=== PATIENT | male | born 1945 | race Caucasian/White ===

== ENCOUNTER 2018-06-28 14:11 | Inpatient (IN) | payer OTHER, MEDICARE ==
[2018-06-28] MEDS ORDERED: Ondansetron 4 MG/2 ML SDV IVPUSH ONE (14:55)
[2018-06-28] MEDS ORDERED: Sodium Chloride 0.9% 10 ML Syringe FLUSH PRN (14:55)
[2018-06-28] MEDS ORDERED: Sodium Chloride 0.9% 1,000 ML IV SCH (15:00)
--- NOTE | 2018-06-28 16:00 | EDM.PDOC ---
ED HPI GENERAL MEDICAL PROBLEM - General Chief Complaint: Abdominal Pain Stated Complaint: UNABLE TO HAVE BOWEL MOVEMENT SENT BY DR AGUSTIN Time Seen by Provider: 06/28/18 14:32 Source of Information: Reports: Patient, RN Notes Reviewed - History of Present Illness INITIAL COMMENTS - FREE TEXT/NARRATIVE: 73-year-old male has been transferred here to the ED from our [facility] medical clinic after evaluation for abdominal pain, nausea, no appetite for the last 3 days and abdominal pain that has worsened last evening and today primarily upper mid abdomen and right upper abdomen. Have history of gallbladder surgery quite a few years ago. He is been nauseated but not vomiting. Last BM about 3 days ago and he states he normally is quite regular going about once every day. No fever or chills. No chest pain or difficulty breathing. The pain does not radiate to his back. He does have history of prior cholecystectomy many years ago. He states he does not drink alcohol. - Related Data Allergies Allergy/AdvReac Type Severity Reaction Status Date / Time vitamin E (d-alpha AdvReac Rash Verified 06/22/15 15:12 tocopherol) [vitamin E] Home Meds: Home Meds Albuterol [Proventil HFA] 2 puff INH Q6H PRN 06/22/15 [History] Clopidogrel [Plavix] 75 mg PO PCDINNER 06/22/15 [History] Hydrochlorothiazide 12.5 mg PO DAILY 06/22/15 [History] atorvaSTATin Calcium [Atorvastatin Calcium] 20 mg PO BEDTIME 06/22/15 [History] metFORMIN HCl [Metformin HCl] 500 mg PO BID 06/22/15 [History] Formoterol Fumarate [Perforomist] 2 ml NEB BID 06/28/18 [History] Lisinopril 2.5 mg PO DAILY 06/28/18 [History] Past Medical History Other HEENT History: BILATERAL SENSORNEURAL HEARING LOSS, DENTURES - PT STATES HE DOESN'T WEAR THEM Cardiovascular History: Reports: High Cholesterol, Hypertension Other Cardiovascular History: HX OF VARICOSE VEINS Respiratory History: Reports: COPD, Sleep Apnea Other Gastrointestinal History: HX OF GALL STONES Musculoskeletal History: Reports: Gout Other Musculoskeletal History: RIGHT SHOULDER PAIN, DECREASED ROM, ROTATOR CUFF TEAR Neurological History: Reports: CVA, TIA Endocrine/Metabolic History: Reports: Diabetes, Type I Dermatologic History: Reports: Eczema Other Dermatologic History: SEBORRHEIC KERATOSIS, ECZEMA - Past Surgical History Cardiovascular Surgical History: Reports: Carotid Endarterectomy Musculoskeletal Surgical History: Reports: Other (See Below) Social & Family History - Family History HEENT: Reports: Cataract, Glaucoma Cardiac: Reports: Heart Failure, High Cholesterol, Hypertension, [place] OBGYN: Reports: Musculoskeletal: Reports: Arthritis Neurological: Reports: CVA, TIA Endocrine/Metabolic: Reports: Diabetes, Type I Hematologic: Reports: Anemia ED ROS GENERAL - Review of Systems Review Of Systems: See Below Constitutional: Denies: Fever, Chills, Diaphoresis HEENT: Denies: Rhinitis, Sinus Problem, Throat Pain Respiratory: Denies: Shortness of Breath Cardiovascular: Denies: Chest Pain GI/Abdominal: Reports: Abdominal Pain (Upper abdomen and right upper abdomen), Decreased Appetite, Nausea. Denies: Diarrhea Musculoskeletal: Denies: Back Pain Skin: Reports: No Symptoms Neurological: Denies: Dizziness, Numbness, Tingling, Trouble Speaking, Difficulty Walking ED EXAM, GI/ABD - Physical Exam Exam: See Below General Appearance: Alert, Mild Distress Eyes: Bilateral: Normal Appearance Throat/Mouth: Normal Inspection Neck: Supple, Full Range of Motion Respiratory/Chest: No Respiratory Distress, Lungs Clear, Normal Breath Sounds Cardiovascular: Regular Rate, Rhythm GI/Abdominal Exam: Soft, Tender (Moderate tenderness upper mid abdomen and right upper abdomen). No: Guarding, Rebound Back Exam: No: CVA Tenderness (L), CVA Tenderness (R) Extremities: Normal Inspection. No: Normal Range of Motion, Leg Pain Neurological: Alert, Oriented, No Motor/Sensory Deficits Skin Exam: Warm, Dry, Normal Color Course - Vital Signs Last Recorded V/S: Last Vital Signs Temp 98.8 F 06/28/18 19:02 Pulse 86 06/28/18 19:02 Resp 18 06/28/18 19:02 BP 147/84 H 06/28/18 19:02 Pulse Ox 91 L 06/28/18 19:02 - Orders/Labs/Meds Orders: Active Orders 24 hr Category Date Time Status Sodium Chloride 0.9% [Normal Saline] 1,000 ml Med 06/28/18 15:00 Active IV ONETIME Sodium Chloride 0.9% [Normal Saline] 100 ml Med 06/28/18 16:15 Active IV ASDIRECTED Sodium Chloride 0.9% [Saline Flush] Med 06/28/18 14:55 Active 10 ml FLUSH ASDIRECTED PRN Peripheral IV Insertion Adult [OM.PC] Stat Oth 06/28/18 14:54 Ordered Medication Orders Albuterol (Proventil Hfa) 0 gm INH Q6H PRN PRN Reason: breathing Clopidogrel Bisulfate (Plavix) 75 mg PO PCDINNER JOSELINE Enoxaparin Sodium (Lovenox) 30 mg SUBCUT Q24H JOSELINE Hydralazine HCl (Apresoline) 20 mg IVPUSH Q6H PRN PRN Reason: Hypertension Sodium Chloride (Normal Saline) 1,000 mls @ 999 mls/hr IV ONETIME JOSELINE Last Admin: 06/28/18 15:07 Dose: 999 mls/hr Sodium Chloride (Normal Saline) 100 mls @ 80 mls/hr IV ASDIRECTED JOSELINE Last Admin: 06/28/18 16:30 Dose: 80 mls/hr Sodium Chloride (Sodium Chloride 0.45%) 1,000 mls @ 100 mls/hr IV ASDIRECTED JOSELINE Dextrose/Sodium Chloride (Dextrose 5%-1/2 Ns) 1,000 mls @ 100 mls/hr IV ASDIRECTED JOSELINE Non-Formulary Medication (Formoterol Fumarate [Perforomist]) 2 ml NEB BID JOSELINE Ondansetron HCl (Zofran) 4 mg IVPUSH Q8H PRN PRN Reason: Nausea/Vomiting Simvastatin (Zocor) 20 mg PO BEDTIME JOSELINE Sodium Chloride (Saline Flush) 10 ml FLUSH ASDIRECTED PRN PRN Reason: Keep Vein Open Last Admin: 06/28/18 15:07 Dose: 10 ml Meds: Medications Generic Name Dose Route Start Last Admin Trade Name Freq PRN Reason Stop Dose Admin Albuterol 0 gm 06/28/18 19:45 Proventil Hfa INH Q6H PRN breathing Clopidogrel Bisulfate 75 mg 06/29/18 19:00 Plavix PO PCDINNER JOSELINE Enoxaparin Sodium 30 mg 06/28/18 20:15 Lovenox SUBCUT Q24H JOSELINE Hydralazine HCl 20 mg 06/28/18 20:00 Apresoline IVPUSH Q6H PRN Hypertension Sodium Chloride 1,000 mls @ 999 mls/hr 06/28/18 15:00 06/28/18 15:07 Normal Saline IV 999 mls/hr ONETIME JOSELINE Administration Sodium Chloride 100 mls @ 80 mls/hr 06/28/18 16:15 06/28/18 16:30 Normal Saline IV 80 mls/hr ASDIRECTED JOSELINE Administration Sodium Chloride 1,000 mls @ 100 mls/hr 06/28/18 20:15 Sodium Chloride 0.45% IV ASDIRECTED JOSELINE Dextrose/Sodium Chloride 1,000 mls @ 100 mls/hr 06/29/18 07:00 Dextrose 5%-1/2 Ns IV ASDIRECTED JOSELINE Non-Formulary Medication 2 ml 06/28/18 21:00 Formoterol Fumarate [Perforomist] NEB BID JOSELINE Ondansetron HCl 4 mg 06/28/18 20:01 Zofran IVPUSH Q8H PRN Nausea/Vomiting Simvastatin 20 mg 06/28/18 21:00 Zocor PO BEDTIME JOSELINE Sodium Chloride 10 ml 06/28/18 14:55 06/28/18 15:07 Saline Flush FLUSH 10 ml ASDIRECTED PRN Administration Keep Vein Open Discontinued Medications Generic Name Dose Route Start Last Admin Trade Name Freq PRN Reason Stop Dose Admin Diatrizoate Meglum/Diatrizoate Sod 90 ml 06/28/18 16:12 06/28/18 16:30 Gastrografin 37% PO 06/28/18 16:13 90 ml ONETIME ONE Administration Dextrose/Sodium Chloride 1,000 mls @ 100 mls/hr 06/28/18 20:15 Dextrose 5%-1/2 Ns IV ASDIRECTED JOSELINE Iopamidol 100 ml 06/28/18 16:11 06/28/18 16:30 [id number] (76%) IV 06/28/18 16:12 100 ml ONETIME ONE Administration Ondansetron HCl 4 mg 06/28/18 14:55 06/28/18 15:07 Zofran IVPUSH 06/28/18 14:56 4 mg ONETIME ONE Administration - Re-Assessments/Exams Free Text/Narrative Re-Assessment/Exam: 06/28/18 16:00 I did review labs from the clinic, white blood count 7800 sodium 131 potassium 4.2 CO2 27 anion gap 14.2 C reactive protein 8.2 amylase 2938. Patient was sent to the ED with plan for direct admission. However Dr. Champion has asked that we do get a CT of his abdomen for more information regarding pancreatitis and also to make sure he doesn't have bowel obstruction. Have ordered IV fluid, IV Zofran , CT abdomen and pelvis with oral and IV contrast. 06/28/18 17:26. CT does show findings compatible with mild pancreatitis, no evidence for acute bowel obstruction, no other acute findings. See Radiology report for details. Departure - Departure Time of Disposition: 17:27 Disposition: Admitted As Inpatient 68 Condition: Fair Clinical Impression: Pancreatitis Qualifiers: Chronicity: acute Pancreatitis type: unspecified pancreatitis type Acute pancreatitis complication: unspecified Qualified Code(s): K85.90 - Acute pancreatitis without necrosis or infection, unspecified - Discharge Information ED Communication - Discussed Case With (1) Discussed Case With (1): Admitting Provider (Dr Champion, decision to admit at about 17:25.) - My Orders Last 24 Hours: My Active Orders 06/28/18 14:54 Peripheral IV Insertion Adult [OM.PC] Stat 06/28/18 14:55 Sodium Chloride 0.9% [Saline Flush] 10 ml FLUSH ASDIRECTED PRN 06/28/18 15:00 Sodium Chloride 0.9% [Normal Saline] 1,000 ml IV ONETIME 06/28/18 16:15 Sodium Chloride 0.9% [Normal Saline] 100 ml IV ASDIRECTED - Assessment/Plan Last 24 Hours: My Active Orders 06/28/18 14:54 Peripheral IV Insertion Adult [OM.PC] Stat 06/28/18 14:55 Sodium Chloride 0.9% [Saline Flush] 10 ml FLUSH ASDIRECTED PRN 06/28/18 15:00 Sodium Chloride 0.9% [Normal Saline] 1,000 ml IV ONETIME 06/28/18 16:15 Sodium Chloride 0.9% [Normal Saline] 100 ml IV ASDIRECTED
[2018-06-28] MEDS ORDERED: Iopamidol 755 Mg/ML 200 ML Bottle IV ONE (16:11)
[2018-06-28] MEDS ORDERED: Diatrizoate Meglumine/Diatrizoate Sodium 37% 120 ML Bottle PO ONE (16:12)
[2018-06-28] MEDS ORDERED: Sodium Chloride 0.9% 100 ML IV SCH (16:15)
--- NOTE | 2018-06-28 17:04 | CT ---
CT abdomen and pelvis Technique: Multiple axial sections were obtained from above the dome of the diaphragm inferiorly through the pubic symphysis. Intravenous and oral contrast was utilized. Delayed images were also obtained through the abdomen and pelvis. Comparison: Prior abdominal ultrasound and abdominal x-ray performed earlier on the same day. Findings: Visualized lung bases show nothing acute. Liver shows slight fatty infiltration. Spleen appears within normal limits. Adrenal glands show no nodule. Multiple cysts are noted within the right kidney. Largest cyst is exophytic off the lower pole measuring 2.8 cm. Left kidney is unremarkable. Pancreas shows slight haziness around its head with small low density finding measuring 1.5 cm between the pancreatic head and duodenum. Multiple surgical clips are seen from prior cholecystectomy. Aorta shows atherosclerotic change without aneurysm. Atherosclerotic change continues into the iliac vessels. No retroperitoneal adenopathy or mesenteric abnormalities are seen. Appendix is seen and is normal in size. No pelvic mass or adenopathy is seen. Delayed images shows contrast throughout the ureters into the bladder. No free fluid or inflammatory change is seen. Bone window settings were reviewed which shows degenerative change scattered within the spine without acute abnormality. Impression: 1. Pancreatic findings as noted above suspicious for mild pancreatitis. Follow-up CT study recommended in 4 months to make sure the small low density finding does not increase in size. 2. Other incidental findings as noted above. Diagnostic code #3
[2018-06-28] MEDS ORDERED: Albuterol 6.7 GM Inhaler INH PRN (19:45)
--- NOTE | 2018-06-28 19:45 | PCM.HP ---
H&P History of Present Illness - General Date of Service: 06/28/18 Admit Problem/Dx: Admission Diagnosis/Problem Admission Diagnosis/Problem Pancreatitis Source of Information: Patient, Family, Provider History Limitations: Reports: No Limitations - History of Present Illness Initial Comments - Free Text/Narative: 73 year old male with PMH of DM type 2 presented to [facility] clinic and was seen for a complaint of abdominal pain. It is associated with nausea without vomiting. There has been a decreased appetite, there is no food intolerance. The patient stated that he has been constipated and has not had a bowel movement in 4-5 days ; normal pattern is daily. Prior to the constipation, there was no blood, change in color of firmness, and no mucous. He has had no change in habits. And denies fever/chills. Symptom Onset Date: 06/24/18 Duration of Symptoms: Reports: Day(s):, Getting Worse Location: Reports: Abdomen Severity: Moderate Improves with: Reports: Medication Worsens with: Reports: None Associated Symptoms: Reports: Loss of Appetite, Nausea/Vomiting, Weakness Abdomen Pain Score (Numeric/FACES): 6 - Related Data Allergies/Adverse Reactions: Allergies Allergy/AdvReac Type Severity Reaction Status Date / Time vitamin E (d-alpha Allergy Rash Verified 06/29/18 07:11 tocopherol) [vitamin E] Home Medications: Home Meds Albuterol [Proventil HFA] 2 puff INH Q6H PRN 06/22/15 [History] Clopidogrel [Plavix] 75 mg PO PCDINNER 06/22/15 [History] Hydrochlorothiazide 12.5 mg PO DAILY 06/22/15 [History] atorvaSTATin Calcium [Atorvastatin Calcium] 20 mg PO BEDTIME 06/22/15 [History] metFORMIN HCl [Metformin HCl] 500 mg PO BID 06/22/15 [History] Formoterol Fumarate [Perforomist] 2 ml NEB BID 06/28/18 [History] Lisinopril 2.5 mg PO DAILY 06/28/18 [History] Past Medical History Other HEENT History: BILATERAL SENSORNEURAL HEARING LOSS, DENTURES - PT STATES HE DOESN'T WEAR THEM Cardiovascular History: Reports: High Cholesterol, Hypertension Other Cardiovascular History: HX OF VARICOSE VEINS Respiratory History: Reports: COPD, Sleep Apnea Gastrointestinal History: Reports: Pancreatitis Other Gastrointestinal History: HX OF GALL STONES Musculoskeletal History: Reports: Gout Other Musculoskeletal History: RIGHT SHOULDER PAIN, DECREASED ROM, ROTATOR CUFF TEAR Neurological History: Reports: CVA, TIA Endocrine/Metabolic History: Reports: Diabetes, Type I Dermatologic History: Reports: Eczema Other Dermatologic History: SEBORRHEIC KERATOSIS, ECZEMA - Past Surgical History Cardiovascular Surgical History: Reports: Carotid Endarterectomy GI Surgical History: Reports: Cholecystectomy Musculoskeletal Surgical History: Reports: Other (See Below) Social & Family History - Family History HEENT: Reports: Cataract, Glaucoma Cardiac: Reports: Heart Failure, High Cholesterol, Hypertension, [place] OBGYN: Reports: Musculoskeletal: Reports: Arthritis Neurological: Reports: CVA, TIA Endocrine/Metabolic: Reports: Diabetes, Type I Hematologic: Reports: Anemia - Tobacco Use Smoking Status *Q: Former Smoker Years of Tobacco use: 30 Packs/Tins Daily: 1 Used Tobacco, but Quit: Yes Month/Year Tobacco Last Used: 08/07 Second Hand Smoke Exposure: No - Caffeine Use Caffeine Use: Reports: Soda - Recreational Drug Use Recreational Drug Use: No H&P Review of Systems - Review of Systems: Review Of Systems: See Below General: Reports: Weakness HEENT: Reports: No Symptoms Pulmonary: Reports: No Symptoms Cardiovascular: Reports: No Symptoms Gastrointestinal: Reports: Abdominal Pain, Constipation, Decreased Appetite, Nausea Genitourinary: Reports: No Symptoms Musculoskeletal: Reports: No Symptoms Skin: Reports: No Symptoms Psychiatric: Reports: No Symptoms Neurological: Reports: No Symptoms Hematologic/Lymphatic: Reports: No Symptoms Immunologic: Reports: No Symptoms Exam - Exam Exam: See Below - Vital Signs Vital Signs: Last Vital Signs Temp 37.1 C 06/28/18 19:02 Pulse 86 06/28/18 19:02 Resp 18 06/28/18 19:02 BP 147/84 H 06/28/18 19:02 Pulse Ox 91 L 06/28/18 19:02 Weight: 84.368 kg - Exam Quality Assessment: DVT Prophylaxis General: Alert, Oriented, Cooperative HEENT: Conjunctiva Clear, Pupils Equal, Pupils Reactive, PERRLA Neck: Trachea Midline Lungs: Normal Respiratory Effort Cardiovascular: Regular Rate GI/Abdominal Exam: Normal Bowel Sounds, Soft, Non-Tender, No Organomegaly, No Distention (Male) Exam: Deferred Rectal (Males) Exam: Deferred Back Exam: Normal Inspection Extremities: Normal Inspection, Non-Tender, Normal Capillary Refill Skin: Warm Neurological: Cranial Nerves Intact Neuro Extensive - Mental Status: Alert, Oriented x3, Normal Mood/Affect, Normal Cognition, Memory Intact Neuro Extensive - Motor, Sensory, Reflexes: CN II-XII Intact Psychiatric: Alert, Normal Affect, Normal Mood - Patient Data Result Diagrams: 06/29/18 05:45 06/29/18 05:45 - Problem List (1) Hypertension SNOMED Code(s): 07507692 ICD Code: I10 - ESSENTIAL (PRIMARY) HYPERTENSION Status: Acute Current Visit: Yes (2) Diabetes mellitus type 2 in obese SNOMED Code(s): 83079443 ICD Code: E11.69 - TYPE 2 DIABETES MELLITUS WITH OTHER SPECIFIED COMPLICATION ; E66.9 - OBESITY, UNSPECIFIED Status: Acute Current Visit: Yes (3) Peripheral vascular disease SNOMED Code(s): 691440169 ICD Code: I73.9 - PERIPHERAL VASCULAR DISEASE, UNSPECIFIED Status: Acute Current Visit: Yes (4) Hyperlipidemia associated with type 2 diabetes mellitus SNOMED Code(s): 672066518851, 829573339714 ICD Code: E11.69 - TYPE 2 DIABETES MELLITUS WITH OTHER SPECIFIED COMPLICATION ; E78.5 - HYPERLIPIDEMIA, UNSPECIFIED Status: Acute Current Visit: Yes (5) Pancreatitis SNOMED Code(s): 34470406 ICD Code: K85.90 - ACUTE PANCREATITIS WITHOUT NECROSIS OR INFECTION, UNSP Status: Acute Current Visit: Yes Qualifiers: Chronicity: acute Pancreatitis type: unspecified pancreatitis type Acute pancreatitis complication: unspecified Qualified Code(s): K85.90 - Acute pancreatitis without necrosis or infection, unspecified Problem List Initiated/Reviewed/Updated: Yes Orders Last 24hrs: Active Orders 24 hr Category Date Time Status Admission Status [Patient Status] [ADT] Routine ADT 06/28/18 18:14 Active Sodium Chloride 0.9% [Normal Saline] 1,000 ml Med 06/28/18 15:00 Active IV ONETIME Sodium Chloride 0.9% [Normal Saline] 100 ml Med 06/28/18 16:15 Active IV ASDIRECTED Sodium Chloride 0.9% [Saline Flush] Med 06/28/18 14:55 Active 10 ml FLUSH ASDIRECTED PRN Peripheral IV Insertion Adult [OM.PC] Stat Oth 06/28/18 14:54 Ordered Medication Orders Sodium Chloride (Normal Saline) 1,000 mls @ 999 mls/hr IV ONETIME JOSELINE Last Admin: 06/28/18 15:07 Dose: 999 mls/hr Sodium Chloride (Normal Saline) 100 mls @ 80 mls/hr IV ASDIRECTED JOSELINE Last Admin: 06/28/18 16:30 Dose: 80 mls/hr Sodium Chloride (Saline Flush) 10 ml FLUSH ASDIRECTED PRN PRN Reason: Keep Vein Open Last Admin: 06/28/18 15:07 Dose: 10 ml Assessment/Plan Comment:: Impression: Acute pancreatitis, non alcoholic Pancreatic mass on CT of abd/pelvis, query pancreatic cancer Hypertension Hyperlipidemia Diabetes mellitus, type 2 Hyponatremia Plan: NPO except meds/ice chips IVF Pain meds Daily labs Tumor markers Home meds Lipid panel DVT/GI prophylaxis
[2018-06-28] MEDS ORDERED: hydrALAZINE 20 MG/ML SDV IVPUSH PRN (20:00)
[2018-06-28] MEDS ORDERED: Ondansetron 4 MG/2 ML SDV IVPUSH PRN (20:01)
[2018-06-28] MEDS ORDERED: Sodium Chloride 0.45% 1,000 ML IV SCH (20:15)
[2018-06-28] MEDS ORDERED: Dextrose 5%-0.45% NaCl 1,000 ML IV SCH (20:15)
[2018-06-28] MEDS ORDERED: Enoxaparin 30 MG/0.3 ML Syringe SUBCUT SCH (20:30)
[2018-06-28] MEDS: Simvastatin 20 MG Tab PO SCH (21:04)
[2018-06-29] MEDS ORDERED: Dextrose 5%-0.45% NaCl 1,000 ML IV SCH (07:00)
[2018-06-29] MEDS: Insulin Lispro 100 Units/ML 3 ML Vial SUBCUT SCH ×3 (08:32→18:06)
[2018-06-29] MEDS ORDERED: Dextrose 5%-0.9% NaCl 1,000 ML IV SCH (09:45)
[2018-06-29] MEDS ORDERED: Docusate Sodium 100 MG Cap PO PRN (11:16)
[2018-06-29] MEDS: FORMOTEROL FUMARATE NEB SCH ×2 (11:54→11:55)
[2018-06-29] MEDS ORDERED: Furosemide 20 MG/2 ML VIAL IVPUSH ONE (17:53)
[2018-06-29] MEDS ORDERED: Clopidogrel 75 MG Tab PO SCH (19:00)
--- NOTE | 2018-06-29 19:34 | PCM.PN ---
- General Info Date of Service: 06/29/18 Subjective Update: C/O abdominal pain; adjust pain meds. Continue NPO, IVF changed. - Review of Systems General: Reports: No Symptoms HEENT: Reports: No Symptoms Pulmonary: Reports: No Symptoms Cardiovascular: Reports: No Symptoms Gastrointestinal: Reports: Abdominal Pain, Nausea Genitourinary: Reports: No Symptoms Musculoskeletal: Reports: No Symptoms Skin: Reports: No Symptoms Neurological: Reports: No Symptoms Psychiatric: Reports: No Symptoms - Patient Data Vitals - Most Recent: Last Vital Signs Temp 36.7 C 06/29/18 16:56 Pulse 82 06/29/18 16:56 Resp 14 06/29/18 16:56 BP 123/68 06/29/18 16:56 Pulse Ox 99 06/29/18 16:56 Weight - Most Recent: 84.368 kg I&O - Last 24 Hours: Intake & Output 06/29/18 06/29/18 06/29/18 06:59 14:59 22:59 Intake Total 780 681 Output Total 300 775 Balance 480 -94 Lab Results Last 24 Hours: Laboratory Results - last 24 hr 06/28/18 06/29/18 06/29/18 Range/Units 23:39 05:45 05:45 WBC 5.18 (4.23-9.07) K/mm3 RBC 5.34 (4.63-6.08) M/mm3 Hgb 15.0 (13.7-17.5) gm/L Hct 43.0 (40.1-51.0) % MCV 80.5 (79.0-92.2) fl MCH 28.1 (25.7-32.2) pg MCHC 34.9 (32.2-35.5) g/dl RDW Std Deviation 41.3 (35.1-43.9) fL Plt Count 165 (163-337) K/mm3 MPV 10.3 (9.4-12.3) fl Neut % (Auto) 71.8 H (34.0-67.9) % Lymph % (Auto) 10.6 L (21.8-53.1) % Real % (Auto) 15.1 H (5.3-12.2) % Eos % (Auto) 2.1 (0.8-7.0) Baso % (Auto) 0.0 L (0.1-1.2) % Neut # (Auto) 3.72 (1.78-5.38) K/mm3 Lymph # (Auto) 0.55 L (1.32-3.57) K/mm3 Real # (Auto) 0.78 (0.30-0.82) K/mm3 Eos # (Auto) 0.11 (0.04-0.54) K/mm3 Baso # (Auto) 0.00 L (0.01-0.08) K/mm3 Manual Slide Review Normal smear Sodium 133 L (136-145) mEq/L Potassium 3.8 (3.5-5.1) mEq/L Chloride 98 (98-107) mEq/L Carbon Dioxide 25 (21-32) mEq/L Anion Gap 13.8 (5-15) BUN 16 (7-18) mg/dL Creatinine 1.1 (0.7-1.3) mg/dL Est Cr Clr Drug Dosing 55.58 mL/min Estimated GFR (MDRD) > 60 (>60) mL/min BUN/Creatinine Ratio 14.5 (14-18) Glucose 179 H (83-115) mg/dL POC Glucose 198 H (83-110) mg/dL Lactic Acid (0.4-2.0) mmol/L Calcium 9.0 (8.5-10.1) mg/dL Magnesium 2.2 (1.8-2.4) mg/dl C-Reactive Protein 6.4 H* (<1.0) mg/dL Lipase 2115 H (73-393) U/L 06/29/18 06/29/18 06/29/18 Range/Units 05:45 06:21 10:53 WBC (4.23-9.07) K/mm3 RBC (4.63-6.08) M/mm3 Hgb (13.7-17.5) gm/L Hct (40.1-51.0) % MCV (79.0-92.2) fl MCH (25.7-32.2) pg MCHC (32.2-35.5) g/dl RDW Std Deviation (35.1-43.9) fL Plt Count (163-337) K/mm3 MPV (9.4-12.3) fl Neut % (Auto) (34.0-67.9) % Lymph % (Auto) (21.8-53.1) % Real % (Auto) (5.3-12.2) % Eos % (Auto) (0.8-7.0) Baso % (Auto) (0.1-1.2) % Neut # (Auto) (1.78-5.38) K/mm3 Lymph # (Auto) (1.32-3.57) K/mm3 Real # (Auto) (0.30-0.82) K/mm3 Eos # (Auto) (0.04-0.54) K/mm3 Baso # (Auto) (0.01-0.08) K/mm3 Manual Slide Review Sodium (136-145) mEq/L Potassium (3.5-5.1) mEq/L Chloride (98-107) mEq/L Carbon Dioxide (21-32) mEq/L Anion Gap (5-15) BUN (7-18) mg/dL Creatinine (0.7-1.3) mg/dL Est Cr Clr Drug Dosing mL/min Estimated GFR (MDRD) (>60) mL/min BUN/Creatinine Ratio (14-18) Glucose (83-115) mg/dL POC Glucose 180 H 206 H (83-110) mg/dL Lactic Acid 0.9 (0.4-2.0) mmol/L Calcium (8.5-10.1) mg/dL Magnesium (1.8-2.4) mg/dl C-Reactive Protein (<1.0) mg/dL Lipase (73-393) U/L 06/29/18 Range/Units 16:52 WBC (4.23-9.07) K/mm3 RBC (4.63-6.08) M/mm3 Hgb (13.7-17.5) gm/L Hct (40.1-51.0) % MCV (79.0-92.2) fl MCH (25.7-32.2) pg MCHC (32.2-35.5) g/dl RDW Std Deviation (35.1-43.9) fL Plt Count (163-337) K/mm3 MPV (9.4-12.3) fl Neut % (Auto) (34.0-67.9) % Lymph % (Auto) (21.8-53.1) % Real % (Auto) (5.3-12.2) % Eos % (Auto) (0.8-7.0) Baso % (Auto) (0.1-1.2) % Neut # (Auto) (1.78-5.38) K/mm3 Lymph # (Auto) (1.32-3.57) K/mm3 Real # (Auto) (0.30-0.82) K/mm3 Eos # (Auto) (0.04-0.54) K/mm3 Baso # (Auto) (0.01-0.08) K/mm3 Manual Slide Review Sodium (136-145) mEq/L Potassium (3.5-5.1) mEq/L Chloride (98-107) mEq/L Carbon Dioxide (21-32) mEq/L Anion Gap (5-15) BUN (7-18) mg/dL Creatinine (0.7-1.3) mg/dL Est Cr Clr Drug Dosing mL/min Estimated GFR (MDRD) (>60) mL/min BUN/Creatinine Ratio (14-18) Glucose (83-115) mg/dL POC Glucose 231 H (83-110) mg/dL Lactic Acid (0.4-2.0) mmol/L Calcium (8.5-10.1) mg/dL Magnesium (1.8-2.4) mg/dl C-Reactive Protein (<1.0) mg/dL Lipase (73-393) U/L Med Orders - Current: Current Medications Albuterol (Proventil Hfa) 0 gm INH Q6H PRN PRN Reason: breathing Clopidogrel Bisulfate (Plavix) 75 mg PO PCDINNER [facility] Last Admin: 06/29/18 18:07 Dose: 75 mg Docusate Sodium (Colace) 100 mg PO DAILY PRN PRN Reason: Constipation Last Admin: 06/29/18 11:25 Dose: 100 mg Enoxaparin Sodium (Lovenox) 40 mg SUBCUT Q24H [facility] Hydralazine HCl (Apresoline) 20 mg IVPUSH Q6H PRN PRN Reason: Hypertension Dextrose/Sodium Chloride (Dextrose 5%-Normal Saline) 1,000 mls @ 75 mls/hr IV ASDIRECTED [facility] Insulin Human Lispro (Humalog) 0 unit SUBCUT QIDACANDBED [facility]; Protocol Last Admin: 06/29/18 18:06 Dose: 2 unit Ondansetron HCl (Zofran) 4 mg IVPUSH Q8H PRN PRN Reason: Nausea/Vomiting Formoterol Fumarate [Perforomist]20 Mcg/2 Ml Ptom 0 each NEB BID [facility]SELINE Simvastatin (Zocor) 20 mg PO BEDTIME [facility] Last Admin: 06/28/18 21:04 Dose: 20 mg Sodium Chloride (Saline Flush) 10 ml FLUSH ASDIRECTED PRN PRN Reason: Keep Vein Open Last Admin: 06/28/18 15:07 Dose: 10 ml Discontinued Medications Diatrizoate Meglum/Diatrizoate Sod (Gastrografin 37%) 90 ml PO ONETIME ONE Stop: 06/28/18 16:13 Last Admin: 06/28/18 16:30 Dose: 90 ml Enoxaparin Sodium (Lovenox) 30 mg SUBCUT Q24H [facility] Last Admin: 06/28/18 21:12 Dose: 30 mg Furosemide (Lasix) 20 mg IVPUSH ONETIME ONE Stop: 06/29/18 17:54 Last Admin: 06/29/18 18:09 Dose: 20 mg Sodium Chloride (Normal Saline) 1,000 mls @ 999 mls/hr IV ONETIME [facility] Last Admin: 06/28/18 15:07 Dose: 999 mls/hr Sodium Chloride (Normal Saline) 100 mls @ 80 mls/hr IV ASDIRECTED [facility] Last Admin: 06/28/18 16:30 Dose: 80 mls/hr Dextrose/Sodium Chloride (Dextrose 5%-1/2 Ns) 1,000 mls @ 100 mls/hr IV ASDIRECTED [facility] Sodium Chloride (Sodium Chloride 0.45%) 1,000 mls @ 100 mls/hr IV ASDIRECTED [facility] Stop: 06/29/18 05:00 Last Admin: 06/28/18 21:04 Dose: 100 mls/hr Dextrose/Sodium Chloride (Dextrose 5%-1/2 Ns) 1,000 mls @ 100 mls/hr IV ASDIRECTED [facility] Last Admin: 06/29/18 07:14 Dose: 100 mls/hr Dextrose/Sodium Chloride (Dextrose 5%-Normal Saline) 1,000 mls @ 125 mls/hr IV ASDIRECTED [facility] Last Admin: 06/29/18 11:24 Dose: 125 mls/hr Iopamidol (Isovue-370 (76%)) 100 ml IV ONETIME ONE Stop: 06/28/18 16:12 Last Admin: 06/28/18 16:30 Dose: 100 ml Ondansetron HCl (Zofran) 4 mg IVPUSH ONETIME ONE Stop: 06/28/18 14:56 Last Admin: 06/28/18 15:07 Dose: 4 mg Formoterol Fumarate [Perforomist] 2 Ml * *Ptom 2 each NEB BID [facility]SELINE Last Admin: 06/29/18 11:55 Dose: Not Given - Exam Quality Assessment: DVT Prophylaxis General: Alert, Oriented, Cooperative, No Acute Distress HEENT: Pupils Equal, Pupils Reactive, EOMI Neck: Trachea Midline, No JVD Lungs: Normal Respiratory Effort Cardiovascular: Regular Rate, Regular Rhythm GI/Abdominal Exam: Normal Bowel Sounds, Soft, Non-Tender, No Organomegaly, No Distention (Male) Exam: Deferred Back Exam: Normal Inspection Extremities: Normal Inspection, Non-Tender, Normal Capillary Refill Skin: Warm Neurological: No New Focal Deficit Psy/Mental Status: Alert, Normal Affect, Normal Mood - Problem List & Annotations (1) Hypertension SNOMED Code(s): 06126274 Code(s): I10 - ESSENTIAL (PRIMARY) HYPERTENSION Status: Acute Current Visit: Yes (2) Diabetes mellitus type 2 in obese SNOMED Code(s): 66539048 Code(s): E11.69 - TYPE 2 DIABETES MELLITUS WITH OTHER SPECIFIED COMPLICATION ; E66.9 - OBESITY, UNSPECIFIED Status: Acute Current Visit: Yes (3) Peripheral vascular disease SNOMED Code(s): 058907891 Code(s): I73.9 - PERIPHERAL VASCULAR DISEASE, UNSPECIFIED Status: Acute Current Visit: Yes (4) Hyperlipidemia associated with type 2 diabetes mellitus SNOMED Code(s): 319985513222, 912561264611 Code(s): E11.69 - TYPE 2 DIABETES MELLITUS WITH OTHER SPECIFIED COMPLICATION ; E78.5 - HYPERLIPIDEMIA, UNSPECIFIED Status: Acute Current Visit: Yes (5) Pancreatitis SNOMED Code(s): 98179392 Code(s): K85.90 - ACUTE PANCREATITIS WITHOUT NECROSIS OR INFECTION, UNSP Status: Acute Current Visit: Yes Qualifiers: Chronicity: acute Pancreatitis type: unspecified pancreatitis type Acute pancreatitis complication: unspecified Qualified Code(s): K85.90 - Acute pancreatitis without necrosis or infection, unspecified - Problem List Review Problem List Initiated/Reviewed/Updated: Yes - My Orders Last 24 Hours: My Active Orders 06/28/18 19:45 Albuterol [Proventil HFA] 0 gm INH Q6H PRN 06/28/18 20:00 hydrALAZINE [Apresoline] 20 mg IVPUSH Q6H PRN 06/28/18 20:01 Ondansetron [Zofran] 4 mg IVPUSH Q8H PRN 06/28/18 20:04 Blood Glucose Check, Bedside [RC] Q6HR 06/28/18 20:06 Resuscitation Status Routine 06/28/18 21:00 Simvastatin [Zocor] 20 mg PO BEDTIME 06/29/18 09:00 Consult to Case Management/Professor Of [employer] Studies [CONS] Routine Consult to Occupational Therapy [OT Evaluation and Treatment] [CONS] Routine 06/29/18 11:00 Consult to Physical Therapy [PT Evaluation and Treatment] [CONS] Routine 06/29/18 11:16 Docusate Sodium [Colace] 100 mg PO DAILY PRN 06/29/18 14:41 Patient's Own Medication [Ptom] 0 each NEB BID 06/29/18 17:55 CXR [Chest 2V] [CR] Routine 06/29/18 18:00 Dextrose 5%-0.9% NaCl [Dextrose 5%-Normal Saline] 1,000 ml IV ASDIRECTED 06/29/18 19:00 Clopidogrel [Plavix] 75 mg PO PCDINNER 06/29/18 21:00 Enoxaparin [Lovenox] 40 mg SUBCUT Q24H 06/29/18 Breakfast NPO [Nothing Per Oral Diet] [DIET] 06/30/18 05:00 BMP [BASIC METABOLIC PANEL,BMP] [CHEM] DAILY CBC WITH AUTO DIFF [HEME] DAILY CRP [C-REACTIVE PROTEIN] [CHEM] DAILY LACTIC ACID [CHEM] DAILY LIPASE [CHEM] DAILY MAGNESIUM [CHEM] DAILY 06/30/18 08:00 Abdomen 2V AP Flat Upright [CR] Routine 07/01/18 05:00 BMP [BASIC METABOLIC PANEL,BMP] [CHEM] DAILY CBC WITH AUTO DIFF [HEME] DAILY CRP [C-REACTIVE PROTEIN] [CHEM] DAILY LACTIC ACID [CHEM] DAILY LIPASE [CHEM] DAILY MAGNESIUM [CHEM] DAILY 07/02/18 05:00 BMP [BASIC METABOLIC PANEL,BMP] [CHEM] DAILY CBC WITH AUTO DIFF [HEME] DAILY CRP [C-REACTIVE PROTEIN] [CHEM] DAILY LACTIC ACID [CHEM] DAILY LIPASE [CHEM] DAILY MAGNESIUM [CHEM] DAILY - Plan Plan:: Impression: Acute pancreatitis, non alcoholic Pancreatic mass on CT of abd/pelvis, query pancreatic cancer Hypertension Hyperlipidemia Diabetes mellitus, type 2 Hyponatremia Plan: NPO except meds/ice chips IVF Pain meds Daily labs Tumor markers Home meds Lipid panel DVT/GI prophylaxis
[2018-06-29] MEDS ORDERED: Magnesium Hydroxide 400 MG/5 ML Susp 30 ML Cup PO ONE (20:26)
--- NOTE | 2018-06-29 20:32 | CR ---
Chest: 2 views of the chest were obtained. Comparison: Prior chest x-ray of 12/03/17. Slight pleural thickening is seen along the lateral chest reyes which is stable. Very slight atelectasis is seen within both lung bases. Lungs otherwise are clear but appear slightly hyperinflated. Minimal degenerative change is scattered within the spine. Heart size and mediastinum are normal. Impression: 1. Possible emphysematous change and other incidental findings as noted above. Nothing acute is appreciated. Diagnostic code #2
[2018-06-29] MEDS: Dextrose 5%-0.9% NaCl 1,000 ML IV SCH (20:34)
[2018-06-29] MEDS: Simvastatin 20 MG Tab PO SCH (20:34)
[2018-06-29] MEDS ORDERED: Enoxaparin 40 MG/0.4 ML Syringe SUBCUT SCH (21:00)
[2018-06-29] MEDS: FORMOTEROL FUMARATE 20 MCG/2 ML NEB SCH (21:01)
[2018-06-30] MEDS: Insulin Lispro 100 Units/ML 3 ML Vial SUBCUT SCH ×3 (00:57→11:56)
[2018-06-30] MEDS: FORMOTEROL FUMARATE 20 MCG/2 ML NEB SCH (08:27)
--- NOTE | 2018-06-30 09:22 | CR ---
Abdomen: Supine and upright views of the abdomen were obtained. Comparison: Previous abdominal series of 06/28/18. Contrast noted within the colon from prior CT exam of 06/28/18. Surgical clips are seen within the upper right abdomen. Vascular calcification is seen. Prostate calcifications are present. Degenerative change scattered within the spine. Impression: 1. Incidental findings as noted above. Nothing acute is seen. Diagnostic code #2
[2018-06-30] MEDS: Dextrose 5%-0.9% NaCl 1,000 ML IV SCH (09:28)
--- NOTE | 2018-06-30 15:24 | PCM.DCSUM1 ---
Discharge Summary - Hospital Course Free Text/Narrative:: 73 year old male with abdominal pain associated with nausea, no vomiting. Weight loss is unknown, he additionally complains of a change in bowel habits. The patient had an elevated lipase, >2000 of unclear etiology. Alcohol, and cholesterol were eliminated from the list as a source. A review of medications was not performed, but there had been no recent changes. A CT of the abdomen/ pelvis was performed which documented a 1.5 cm density in the pancreatic head. In light of this new finding as well as abnormal LFT/bilirubin, the working diagnosis became possible pancreatic cancer. The family requested a transfer to [place] for more specialized care. The case was discussed with the hospitalist service apparel fashion designer, one call [facility]. Dr Rojas accepted the patient who will be admitted to the medical floor. CA19-9 has been drawn, and is pending. Diagnosis Acute pancreatitis Abdominal pain with nausea Pancreatic mass Transaminitis Hyperbilirubinemia HPI Initial Comments: 73 year old male with PMH of DM type [address] [facility] clinic and was seen for a complaint of abdominal pain. It is associated with nausea without vomiting. There has been a decreased appetite, there is no food intolerance. The patient stated that he has been constipated and has not had a bowel movement in 4-5 days ; normal pattern is daily. Prior to the constipation, there was no blood, change in color of firmness, and no mucous. He has had no change in habits. And denies fever/chills. Diagnosis: Stroke: No - Discharge Data Discharge Date: 06/30/18 Discharge Disposition: DC/Tfer to Acute Hospital 02 Condition: Good - Discharge Diagnosis/Problem(s) (1) Hypertension SNOMED Code(s): 98304275 ICD Code: I10 - ESSENTIAL (PRIMARY) HYPERTENSION Status: Acute (2) Diabetes mellitus type 2 in obese SNOMED Code(s): 70819923 ICD Code: E11.69 - TYPE 2 DIABETES MELLITUS WITH OTHER SPECIFIED COMPLICATION ; E66.9 - OBESITY, UNSPECIFIED Status: Acute (3) Peripheral vascular disease SNOMED Code(s): 951355808 ICD Code: I73.9 - PERIPHERAL VASCULAR DISEASE, UNSPECIFIED Status: Acute (4) Hyperlipidemia associated with type 2 diabetes mellitus SNOMED Code(s): 178680944026, 203096655154 ICD Code: E11.69 - TYPE 2 DIABETES MELLITUS WITH OTHER SPECIFIED COMPLICATION ; E78.5 - HYPERLIPIDEMIA, UNSPECIFIED Status: Acute (5) Pancreatitis SNOMED Code(s): 02543041 ICD Code: K85.90 - ACUTE PANCREATITIS WITHOUT NECROSIS OR INFECTION, UNSP Status: Acute Qualifiers: Chronicity: acute Pancreatitis type: unspecified pancreatitis type Acute pancreatitis complication: unspecified Qualified Code(s): K85.90 - Acute pancreatitis without necrosis or infection, unspecified (6) Transaminitis SNOMED Code(s): 790554800, 690149588 ICD Code: R74.0 - NONSPEC ELEV OF LEVELS OF TRANSAMNS & LACTIC ACID DEHYDRGNSE Status: Acute (7) Hyperbilirubinemia SNOMED Code(s): 18561288 ICD Code: E80.6 - OTHER DISORDERS OF BILIRUBIN METABOLISM Status: Acute (8) Pancreatic mass SNOMED Code(s): 120114874 ICD Code: K86.9 - DISEASE OF PANCREAS, UNSPECIFIED Status: Acute - Patient Summary/Data Consults: Consultations 06/29/18 09:00 Consult to Case Management/Provider Service Representative [CONS] Routine Consult to Occupational Therapy [OT Evaluation and Treatment] [CONS] Routine 06/29/18 11:00 Consult to Physical Therapy [PT Evaluation and Treatment] [CONS] Routine - Patient Instructions Diet: NPO Activity: As Tolerated Driving: Do Not Drive Showering/Bathing: May Shower Notify Provider of: Fever, Increased Pain, Nausea and/or Vomiting - Discharge Plan *PRESCRIPTION DRUG MONITORING PROGRAM REVIEWED*: Not Applicable *COPY OF PRESCRIPTION DRUG MONITORING REPORT IN PATIENT [place]: Not Applicable Home Medications: Home Meds Albuterol [Proventil HFA] 2 puff INH Q6H PRN 06/22/15 [History] Clopidogrel [Plavix] 75 mg PO PCDINNER 06/22/15 [History] Hydrochlorothiazide 12.5 mg PO DAILY 06/22/15 [History] atorvaSTATin Calcium [Atorvastatin Calcium] 20 mg PO BEDTIME 06/22/15 [History] metFORMIN HCl [Metformin HCl] 500 mg PO BID 06/22/15 [History] Formoterol Fumarate [Perforomist] 2 ml NEB BID 06/28/18 [History] Lisinopril 2.5 mg PO DAILY 06/28/18 [History] Oxygen Therapy Mode: Room Air Forms: ED Department Discharge Referrals: Albin Joe MD [Primary Care Provider] - Adilia Hodges MD [Physician] - (Patient see's Dr. Hodges through the [place]) - Discharge Summary/Plan Comment DC Time >30 min.: Yes (transfer call to [facility]) Discharge Summary/Plan Comment: Impression: Acute pancreatitis, non alcoholic Pancreatic mass on CT of abd/pelvis, query pancreatic cancer Hypertension Hyperlipidemia Diabetes mellitus, type 2 Hyponatremia Plan: NPO except meds/ice chips IVF Pain meds Daily labs Tumor markers Home meds Lipid panel DVT/GI prophylaxis - General Info Date of Service: 06/28/18 Functional Status: Reports: Pain Controlled, Urinating - Review of Systems General: Reports: Weakness HEENT: Reports: No Symptoms Pulmonary: Reports: No Symptoms Cardiovascular: Reports: No Symptoms Gastrointestinal: Reports: No Symptoms Genitourinary: Reports: No Symptoms Musculoskeletal: Reports: No Symptoms Skin: Reports: No Symptoms Neurological: Reports: No Symptoms Psychiatric: Reports: No Symptoms - Patient Data Vitals - Most Recent: Last Vital Signs Temp 36.8 C 06/30/18 08:47 Pulse 81 06/30/18 08:06 Resp 18 06/30/18 08:06 BP 109/67 06/30/18 08:06 Pulse Ox 92 L 06/30/18 08:27 Weight - Most Recent: 83.552 kg I&O - Last 24 hours: Intake & Output 06/30/18 06/30/18 06/30/18 06:59 14:59 22:59 Intake Total 873 Output Total 1575 Balance -702 Lab Results - Last 24 hrs: Laboratory Results - last 24 hr 06/29/18 06/29/18 06/30/18 Range/Units 16:52 22:21 00:50 WBC (4.23-9.07) K/mm3 RBC (4.63-6.08) M/mm3 Hgb (13.7-17.5) gm/L Hct (40.1-51.0) % MCV (79.0-92.2) fl MCH (25.7-32.2) pg MCHC (32.2-35.5) g/dl RDW Std Deviation (35.1-43.9) fL Plt Count (163-337) K/mm3 MPV (9.4-12.3) fl Neut % (Auto) (34.0-67.9) % Lymph % (Auto) (21.8-53.1) % [place] % (Auto) (5.3-12.2) % Eos % (Auto) (0.8-7.0) Baso % (Auto) (0.1-1.2) % Neut # (Auto) (1.78-5.38) K/mm3 Lymph # (Auto) (1.32-3.57) K/mm3 [place] # (Auto) (0.30-0.82) K/mm3 Eos # (Auto) (0.04-0.54) K/mm3 Baso # (Auto) (0.01-0.08) K/mm3 Manual Slide Review Sodium (136-145) mEq/L Potassium (3.5-5.1) mEq/L Chloride (98-107) mEq/L Carbon Dioxide (21-32) mEq/L Anion Gap (5-15) BUN (7-18) mg/dL Creatinine (0.7-1.3) mg/dL Est Cr Clr Drug Dosing mL/min Estimated GFR (MDRD) (>60) mL/min BUN/Creatinine Ratio (14-18) Glucose (83-115) mg/dL POC Glucose 231 H 239 H 257 H (83-110) mg/dL Lactic Acid (0.4-2.0) mmol/L Calcium (8.5-10.1) mg/dL Magnesium (1.8-2.4) mg/dl Total Bilirubin (0.2-1.0) mg/dL Direct Bilirubin (0.0-0.2) mg/dl C-Reactive Protein (<1.0) mg/dL Triglycerides (<150) mg/dL Cholesterol (<200) mg/dL LDL Cholesterol Direct (<100) mg/dL HDL Cholesterol (40-59) mg/dL Lipase (73-393) U/L 06/30/18 06/30/18 06/30/18 Range/Units 06:07 06:08 06:08 WBC 4.03 L (4.23-9.07) K/mm3 RBC 5.43 (4.63-6.08) M/mm3 Hgb 15.0 (13.7-17.5) gm/L Hct 44.1 (40.1-51.0) % MCV 81.2 (79.0-92.2) fl MCH 27.6 (25.7-32.2) pg MCHC 34.0 (32.2-35.5) g/dl RDW Std Deviation 41.6 (35.1-43.9) fL Plt Count 157 L (163-337) K/mm3 MPV 10.0 (9.4-12.3) fl Neut % (Auto) 64.1 (34.0-67.9) % Lymph % (Auto) 14.6 L (21.8-53.1) % [place] % (Auto) 16.9 H (5.3-12.2) % Eos % (Auto) 3.5 (0.8-7.0) Baso % (Auto) 0.2 (0.1-1.2) % Neut # (Auto) 2.58 (1.78-5.38) K/mm3 Lymph # (Auto) 0.59 L (1.32-3.57) K/mm3 [place] # (Auto) 0.68 (0.30-0.82) K/mm3 Eos # (Auto) 0.14 (0.04-0.54) K/mm3 Baso # (Auto) 0.01 (0.01-0.08) K/mm3 Manual Slide Review Normal smear Sodium 136 (136-145) mEq/L Potassium 4.0 (3.5-5.1) mEq/L Chloride 99 (98-107) mEq/L Carbon Dioxide 28 (21-32) mEq/L Anion Gap 13.0 (5-15) BUN 13 (7-18) mg/dL Creatinine 1.3 (0.7-1.3) mg/dL Est Cr Clr Drug Dosing 47.03 mL/min Estimated GFR (MDRD) 54 (>60) mL/min BUN/Creatinine Ratio 10.0 L (14-18) Glucose 229 H (83-115) mg/dL POC Glucose 215 H (83-110) mg/dL Lactic Acid (0.4-2.0) mmol/L Calcium 9.3 (8.5-10.1) mg/dL Magnesium 2.5 H (1.8-2.4) mg/dl Total Bilirubin 6.3 H (0.2-1.0) mg/dL Direct Bilirubin (0.0-0.2) mg/dl C-Reactive Protein 6.9 H* (<1.0) mg/dL Triglycerides 147 (<150) mg/dL Cholesterol 115 (<200) mg/dL LDL Cholesterol Direct 73 (<100) mg/dL HDL Cholesterol 18.0 L (40-59) mg/dL Lipase 2124 H (73-393) U/L 06/30/18 06/30/18 06/30/18 Range/Units 06:08 06:18 11:14 WBC (4.23-9.07) K/mm3 RBC (4.63-6.08) M/mm3 Hgb (13.7-17.5) gm/L Hct (40.1-51.0) % MCV (79.0-92.2) fl MCH (25.7-32.2) pg MCHC (32.2-35.5) g/dl RDW Std Deviation (35.1-43.9) fL Plt Count (163-337) K/mm3 MPV (9.4-12.3) fl Neut % (Auto) (34.0-67.9) % Lymph % (Auto) (21.8-53.1) % [place] % (Auto) (5.3-12.2) % Eos % (Auto) (0.8-7.0) Baso % (Auto) (0.1-1.2) % Neut # (Auto) (1.78-5.38) K/mm3 Lymph # (Auto) (1.32-3.57) K/mm3 [place] # (Auto) (0.30-0.82) K/mm3 Eos # (Auto) (0.04-0.54) K/mm3 Baso # (Auto) (0.01-0.08) K/mm3 Manual Slide Review Sodium (136-145) mEq/L Potassium (3.5-5.1) mEq/L Chloride (98-107) mEq/L Carbon Dioxide (21-32) mEq/L Anion Gap (5-15) BUN (7-18) mg/dL Creatinine (0.7-1.3) mg/dL Est Cr Clr Drug Dosing mL/min Estimated GFR (MDRD) (>60) mL/min BUN/Creatinine Ratio (14-18) Glucose (83-115) mg/dL POC Glucose 252 H (83-110) mg/dL Lactic Acid 1.0 (0.4-2.0) mmol/L Calcium (8.5-10.1) mg/dL Magnesium (1.8-2.4) mg/dl Total Bilirubin (0.2-1.0) mg/dL Direct Bilirubin 5.00 H (0.0-0.2) mg/dl C-Reactive Protein (<1.0) mg/dL Triglycerides (<150) mg/dL Cholesterol (<200) mg/dL LDL Cholesterol Direct (<100) mg/dL HDL Cholesterol (40-59) mg/dL Lipase (73-393) U/L Med Orders - Current: Current Medications Albuterol (Proventil Hfa) 0 gm INH Q6H PRN PRN Reason: breathing Clopidogrel Bisulfate (Plavix) 75 mg PO PCDINNER [facility] Last Admin: 06/29/18 18:07 Dose: 75 mg Docusate Sodium (Colace) 100 mg PO DAILY PRN PRN Reason: Constipation Last Admin: 06/29/18 11:25 Dose: 100 mg Enoxaparin Sodium (Lovenox) 40 mg SUBCUT Q24H [facility] Last Admin: 06/29/18 20:35 Dose: 40 mg Hydralazine HCl (Apresoline) 20 mg IVPUSH Q6H PRN PRN Reason: Hypertension Dextrose/Sodium Chloride (Dextrose 5%-Normal Saline) 1,000 mls @ 75 mls/hr IV ASDIRECTED [facility] Last Admin: 06/30/18 09:28 Dose: 75 mls/hr Insulin Human Lispro (Humalog) 0 unit SUBCUT Q6HR [facility]; Protocol Last Admin: 06/30/18 11:56 Dose: 6 unit Ondansetron HCl (Zofran) 4 mg IVPUSH Q8H PRN PRN Reason: Nausea/Vomiting Formoterol Fumarate [Perforomist]20 Mcg/2 Ml Ptom 0 each NEB BID [facility] Last Admin: 06/30/18 08:27 Dose: 1 each Simvastatin (Zocor) 20 mg PO BEDTIME [facility] Last Admin: 06/29/18 20:34 Dose: 20 mg Sodium Chloride (Saline Flush) 10 ml FLUSH ASDIRECTED PRN PRN Reason: Keep Vein Open Last Admin: 06/28/18 15:07 Dose: 10 ml Discontinued Medications Diatrizoate Meglum/Diatrizoate Sod (Gastrografin 37%) 90 ml PO ONETIME ONE Stop: 06/28/18 16:13 Last Admin: 06/28/18 16:30 Dose: 90 ml Enoxaparin Sodium (Lovenox) 30 mg SUBCUT Q24H [facility] Last Admin: 06/28/18 21:12 Dose: 30 mg Furosemide (Lasix) 20 mg IVPUSH ONETIME ONE Stop: 06/29/18 17:54 Last Admin: 06/29/18 18:09 Dose: 20 mg Sodium Chloride (Normal Saline) 1,000 mls @ 999 mls/hr IV ONETIME [facility] Last Admin: 06/28/18 15:07 Dose: 999 mls/hr Sodium Chloride (Normal Saline) 100 mls @ 80 mls/hr IV ASDIRECTED [facility] Last Admin: 06/28/18 16:30 Dose: 80 mls/hr Dextrose/Sodium Chloride (Dextrose 5%-1/2 Ns) 1,000 mls @ 100 mls/hr IV ASDIRECTED [facility] Sodium Chloride (Sodium Chloride 0.45%) 1,000 mls @ 100 mls/hr IV ASDIRECTED [facility] Stop: 06/29/18 05:00 Last Admin: 06/28/18 21:04 Dose: 100 mls/hr Dextrose/Sodium Chloride (Dextrose 5%-1/2 Ns) 1,000 mls @ 100 mls/hr IV ASDIRECTED [facility] Last Admin: 06/29/18 07:14 Dose: 100 mls/hr Dextrose/Sodium Chloride (Dextrose 5%-Normal Saline) 1,000 mls @ 125 mls/hr IV ASDIRECTED [facility] Last Admin: 06/29/18 11:24 Dose: 125 mls/hr Insulin Human Lispro (Humalog) 0 unit SUBCUT QIDACANDBED [facility]; Protocol Last Admin: 06/30/18 00:57 Dose: 3 unit Iopamidol (Isovue-370 (76%)) 100 ml IV ONETIME ONE Stop: 06/28/18 16:12 Last Admin: 06/28/18 16:30 Dose: 100 ml Magnesium Hydroxide (Milk Of Magnesia) 30 ml PO ONETIME ONE Stop: 06/29/18 20:27 Last Admin: 06/29/18 20:37 Dose: 30 ml Ondansetron HCl (Zofran) 4 mg IVPUSH ONETIME ONE Stop: 06/28/18 14:56 Last Admin: 06/28/18 15:07 Dose: 4 mg Formoterol Fumarate [Perforomist] 2 Ml * *Ptom 2 each NEB BID [facility] Last Admin: 06/29/18 11:55 Dose: Not Given - Exam Quality Assessment: Reports: DVT Prophylaxis General: Reports: Alert, Oriented, Cooperative, No Acute Distress HEENT: Reports: Pupils Equal, Pupils Reactive, EOMI Neck: Reports: Trachea Midline, No JVD Lungs: Reports: Normal Respiratory Effort Cardiovascular: Reports: Regular Rate GI/Abdominal Exam: Normal Bowel Sounds, Soft, Non-Tender, No Organomegaly, No Distention (Male) Exam: Deferred Rectal (Males) Exam: Deferred Back Exam: Reports: Normal Inspection Extremities: Normal Capillary Refill Skin: Reports: Warm Neurological: Reports: No New Focal Deficit Psy/Mental Status: Reports: Alert, Normal Affect, Normal Mood
[2018-06-30 16:18] VITALS: BP 105/68
== END 2018-06-30 17:23 | DRG 439 ==
LOC: JD.ED 14:11 → JD.MS 18:14
PROVIDERS: ADMIT Internal Medicine Cardiovascular Disease; ATTEND Internal Medicine Cardiovascular Disease
DX: K85.90 Acute pancreatitis without necrosis or infection, unspecified (principal); E87.1 Hypo-osmolality and hyponatremia; I10 Essential (primary) hypertension; E11.69 Type 2 diabetes mellitus with other specified complication; E11.51 Type 2 diabetes mellitus with diabetic peripheral angiopathy without gangrene; I73.9 Peripheral vascular disease, unspecified; E78.5 Hyperlipidemia, unspecified; E66.9 Obesity, unspecified; K59.00 Constipation, unspecified; E78.00 Pure hypercholesterolemia, unspecified; J44.9 Chronic obstructive pulmonary disease, unspecified; H90.5 Unspecified sensorineural hearing loss; G47.30 Sleep apnea, unspecified; Z88.8 Allergy status to other drugs, medicaments and biological substances; Z79.899 Other long term (current) drug therapy; Z79.84 Long term (current) use of oral hypoglycemic drugs; Z79.02 Long term (current) use of antithrombotics/antiplatelets; Z86.73 Personal history of transient ischemic attack (TIA), and cerebral infarction without residual deficits; Z90.49 Acquired absence of other specified parts of digestive tract; Z87.891 Personal history of nicotine dependence
CPT/HCPCS: 36415; 71046; 71046-26; 74019; 74019-26; 74177; 74177-26; 80048; 80061; 80076; 82247; 82248; 82962; 83605; 83690; 83735; 85025; 86140; 86301; 94640; 94761; 96360; 97161-GP; 97165-GO; 99284; A9270-GY; J1650; J1815-GY; J2405; J7030; J7040; J7042; Q9963; Q9967

== ENCOUNTER 2018-07-09 17:37 | Emergency (ER) | payer MEDICARE, OTHER ==
[2018-07-09] MEDS ORDERED: Sodium Chloride 0.9% 10 ML Syringe FLUSH PRN (17:47)
[2018-07-09 17:48] VITALS: BP 111/70
--- NOTE | 2018-07-09 18:26 | EDM.PDOC ---
ED HPI GENERAL MEDICAL PROBLEM - General Chief Complaint: Chest Pain Stated Complaint: DIFFICULTY BREATHING Time Seen by Provider: 07/09/18 17:47 Source of Information: Reports: Patient, Family, RN Notes Reviewed - History of Present Illness INITIAL COMMENTS - FREE TEXT/NARRATIVE: 73-year-old male with onset of chest discomfort and shortness of breath about 2 or 3 hours ago this afternoon. Just released from a [facility] yesterday after transfer from this hospital about 8 days ago. His states that he was diagnosed with pancreatic cancer at [facility] in [place]. He had one stent placed endoscopically and then had a second stent placed in his "bile duct" percutaneously. He has a follow-up appointment with his Oncologist next Thursday 5 days from now and then will be referred either to [facility] or [facility]. He has had no cough, fever or chills. His discomfort is lower anterior mid chest. He continues to feel mildly short of breath. He does have hx of COPD. Abdomen Pain Score (Numeric/FACES): 8 - Related Data Allergies Allergy/AdvReac Type Severity Reaction Status Date / Time vitamin E (d-alpha Allergy Rash Verified 07/09/18 17:48 tocopherol) [vitamin E] Home Meds: Home Meds Albuterol [Proventil HFA] 2 puff INH Q6H PRN 06/22/15 [History] Clopidogrel [Plavix] 75 mg PO PCDINNER 06/22/15 [History] Hydrochlorothiazide 12.5 mg PO DAILY 06/22/15 [History] atorvaSTATin Calcium [Atorvastatin Calcium] 20 mg PO BEDTIME 06/22/15 [History] metFORMIN HCl [Metformin HCl] 500 mg PO BID 06/22/15 [History] Formoterol Fumarate [Perforomist] 2 ml NEB BID 06/28/18 [History] Lisinopril 2.5 mg PO DAILY 06/28/18 [History] Pantoprazole Sodium [Protonix] 40 mg PO DAILY 07/09/18 [History] Polyethylene Glycol 3350 [MiraLAX] 17 gm PO DAILY 07/09/18 [History] Sennosides/Docusate Sodium [Senna-Docusate Sodium Tablet] 1 tab PO DAILY [History] Past Medical History Other HEENT History: BILATERAL SENSORNEURAL HEARING LOSS, DENTURES - PT STATES HE DOESN'T WEAR THEM Cardiovascular History: Reports: High Cholesterol, Hypertension Other Cardiovascular History: HX OF VARICOSE VEINS Respiratory History: Reports: COPD, Sleep Apnea Gastrointestinal History: Reports: Pancreatitis Other Gastrointestinal History: HX OF GALL STONES, had stent placed in bile duct , mass on pancreas Musculoskeletal History: Reports: Gout Other Musculoskeletal History: RIGHT SHOULDER PAIN, DECREASED ROM, ROTATOR CUFF TEAR Neurological History: Reports: CVA, TIA Endocrine/Metabolic History: Reports: Diabetes, Type I Dermatologic History: Reports: Eczema Other Dermatologic History: SEBORRHEIC KERATOSIS, ECZEMA - Past Surgical History Cardiovascular Surgical History: Reports: Carotid Endarterectomy GI Surgical History: Reports: Cholecystectomy Musculoskeletal Surgical History: Reports: Other (See Below) Social & Family History - Family History HEENT: Reports: Cataract, Glaucoma Cardiac: Reports: Heart Failure, High Cholesterol, Hypertension, [place] OBGYN: Reports: Musculoskeletal: Reports: Arthritis Neurological: Reports: CVA, TIA Endocrine/Metabolic: Reports: Diabetes, Type I Hematologic: Reports: Anemia - Caffeine Use Caffeine Use: Reports: Soda ED ROS GENERAL - Review of Systems Review Of Systems: See Below Constitutional: Denies: Fever, Chills, Diaphoresis HEENT: Denies: Throat Pain Respiratory: Reports: Shortness of Breath. Denies: Wheezing, Pleuritic Chest Pain, Cough Cardiovascular: Reports: Chest Pain (Lower anterior mid chest) GI/Abdominal: Reports: Abdominal Pain (Mild discomfort upper mid abdomen). Denies: Nausea, Vomiting Musculoskeletal: Denies: Back Pain Skin: Reports: No Symptoms Neurological: Reports: Dizziness (Mild) ED EXAM, GENERAL - Physical Exam Exam: See Below General Appearance: Alert, Mild Distress Throat/Mouth: Normal Inspection Head: Atraumatic Neck: Supple, Full Range of Motion Respiratory/Chest: Respiratory Distress (Mild tachypnea), Rales (Mild bilateral bases). No: Rhonchi, Wheezing Cardiovascular: Regular Rate, Rhythm GI/Abdominal: Soft, Tender (Mild tenderness upper mid abdomen) Back Exam: No: CVA Tenderness (L), CVA Tenderness (R) Extremities: Normal Inspection. No: Pedal Edema, Leg Pain Skin Exam: Warm, Dry, Normal Color EKG INTERPRETATION EKG Date: 07/09/18 Rhythm: NSR [place]: Normal P-Wave: Present QRS: Normal ST-T: Normal Course - Vital Signs Last Recorded V/S: Last Vital Signs Temp 97.1 F 07/09/18 17:45 Pulse 79 07/09/18 17:45 Resp 24 H 07/09/18 17:45 BP 111/70 07/09/18 17:45 Pulse Ox 95 07/09/18 19:58 - Orders/Labs/Meds Orders: Active Orders 24 hr Category Date Time Status EKG 12 Lead [EKG Documentation Completion] [RC] STAT Care 07/09/18 17:47 Active Peripheral IV Care [RC] . DIRECTED Care 07/09/18 17:48 Active RT Aerosol Therapy [RC] ASDIRECTED Care 07/09/18 19:47 Active Peripheral IV Insertion Adult [OM.PC] Stat Oth 07/09/18 17:48 Ordered Labs: Laboratory Tests 07/09/18 07/09/18 07/09/18 Range/Units 18:00 18:00 18:00 WBC 7.95 (4.23-9.07) K/mm3 RBC 5.43 (4.63-6.08) M/mm3 Hgb 14.8 (13.7-17.5) gm/L Hct 45.9 (40.1-51.0) % MCV 84.5 (79.0-92.2) fl MCH 27.3 (25.7-32.2) pg MCHC 32.2 (32.2-35.5) g/dl RDW Std Deviation 44.0 H (35.1-43.9) fL Plt Count 230 (163-337) K/mm3 MPV 10.9 (9.4-12.3) fl Neut % (Auto) 79.0 H (34.0-67.9) % Lymph % (Auto) 7.0 L (21.8-53.1) % [place] % (Auto) 10.1 (5.3-12.2) % Eos % (Auto) 2.3 (0.8-7.0) Baso % (Auto) 0.3 (0.1-1.2) % Neut # (Auto) 6.29 H (1.78-5.38) K/mm3 Lymph # (Auto) 0.56 L (1.32-3.57) K/mm3 [place] # (Auto) 0.80 (0.30-0.82) K/mm3 Eos # (Auto) 0.18 (0.04-0.54) K/mm3 Baso # (Auto) 0.02 (0.01-0.08) K/mm3 Manual Slide Review Abnormal smear PT 10.6 (9.5-12.1) SECONDS INR 0.97 APTT 32 H (24-31) SECONDS Sodium 134 L (136-145) mEq/L Potassium 4.8 (3.5-5.1) mEq/L Chloride 97 L (98-107) mEq/L Carbon Dioxide 27 (21-32) mEq/L Anion Gap 14.8 (5-15) BUN 19 H (7-18) mg/dL Creatinine 1.3 (0.7-1.3) mg/dL Est Cr Clr Drug Dosing 47.03 mL/min Estimated GFR (MDRD) 54 (>60) mL/min BUN/Creatinine Ratio 14.6 (14-18) Glucose 415 H (83-115) mg/dL Calcium 9.8 (8.5-10.1) mg/dL Total Bilirubin 4.6 H (0.2-1.0) mg/dL AST 88 H (15-37) U/L ALT 95 H (16-63) U/L Alkaline Phosphatase 663 H (46-116) U/L Troponin I < 0.017 (0.00-0.056) ng/mL NT-Pro-B Natriuret Pep (0-125) pg/mL Total Protein 7.9 (6.4-8.2) g/dl Albumin 3.0 L (3.4-5.0) g/dl Globulin 4.9 gm/dL Albumin/Globulin Ratio 0.6 L (1-2) Lipase (73-393) U/L 07/09/18 07/09/18 Range/Units 18:00 18:00 WBC (4.23-9.07) K/mm3 RBC (4.63-6.08) M/mm3 Hgb (13.7-17.5) gm/L Hct (40.1-51.0) % MCV (79.0-92.2) fl MCH (25.7-32.2) pg MCHC (32.2-35.5) g/dl RDW Std Deviation (35.1-43.9) fL Plt Count (163-337) K/mm3 MPV (9.4-12.3) fl Neut % (Auto) (34.0-67.9) % Lymph % (Auto) (21.8-53.1) % [place] % (Auto) (5.3-12.2) % Eos % (Auto) (0.8-7.0) Baso % (Auto) (0.1-1.2) % Neut # (Auto) (1.78-5.38) K/mm3 Lymph # (Auto) (1.32-3.57) K/mm3 [place] # (Auto) (0.30-0.82) K/mm3 Eos # (Auto) (0.04-0.54) K/mm3 Baso # (Auto) (0.01-0.08) K/mm3 Manual Slide Review PT (9.5-12.1) SECONDS INR APTT (24-31) SECONDS Sodium (136-145) mEq/L Potassium (3.5-5.1) mEq/L Chloride (98-107) mEq/L Carbon Dioxide (21-32) mEq/L Anion Gap (5-15) BUN (7-18) mg/dL Creatinine (0.7-1.3) mg/dL Est Cr Clr Drug Dosing mL/min Estimated GFR (MDRD) (>60) mL/min BUN/Creatinine Ratio (14-18) Glucose (83-115) mg/dL Calcium (8.5-10.1) mg/dL Total Bilirubin (0.2-1.0) mg/dL AST (15-37) U/L ALT (16-63) U/L Alkaline Phosphatase (46-116) U/L Troponin I (0.00-0.056) ng/mL NT-Pro-B Natriuret Pep 75 (0-125) pg/mL Total Protein (6.4-8.2) g/dl Albumin (3.4-5.0) g/dl Globulin gm/dL Albumin/Globulin Ratio (1-2) Lipase 978 H (73-393) U/L Meds: Medications Discontinued Medications Generic Name Dose Route Start Last Admin Trade Name Freq PRN Reason Stop Dose Admin Albuterol/Ipratropium 3 ml 07/09/18 19:47 07/09/18 19:56 Duoneb 3.0-0.5 Mg/3 Ml NEB 07/09/18 19:48 3 ml ONETIME ONE Administration Insulin Human Regular 10 unit 07/09/18 20:07 07/09/18 20:28 Humulin R SUBCUT 07/09/18 20:08 10 units ONETIME ONE Administration Sodium Chloride 10 ml 07/09/18 17:47 07/09/18 18:11 Saline Flush FLUSH 10 ml ASDIRECTED PRN Administration Keep Vein Open - Re-Assessments/Exams Free Text/Narrative Re-Assessment/Exam: 07/10/18 13:41 Sats were low on arrival, about 88 [address] We did place him on 2 L NC and with that sats went up to about 98, CXR showed mild atelectesis L base. No infiltrate. WBC, Trop, ProBNP, lipase, other labs are relatively normal. We did give him a duoneb rx and sats came up to about 93 on room air. He felt better. Family comfortable taking him home. Discussed using incentive spirometer which they have. Discharge instr. as documented. Departure - Departure Time of Disposition: 20:19 Disposition: Home, Self-Care 01 Condition: Fair Clinical Impression: Hyperglycemia Dyspnea Qualifiers: Dyspnea type: unspecified Qualified Code(s): R06.00 - Dyspnea, unspecified Instructions: Shortness of Breath, Adult, [id number], Hyperglycemia, Easy-to- Read Referrals: Christiana Sierra MD [Primary Care Provider] - Forms: ED Department Discharge Additional Instructions: Sleep and rest with chest, head and neck elevated using extra pillows for elevate head of bed as needed. Work with the incentive spirometer that you have about every 3 hours when awake to help improve your breathing. Continue nebulizer treatments every 4-6 hours. Your blood sugar was high today, around 400. That means you need to watch your sugar and carbohydrate intake very carefully, try eat mostly fruit, vegetables and protein rich foods. Continue other medications as prescribed. See Dr. Sierra Thursday as planned, return to ED as needed if symptoms worsening in any way. - My Orders Last 24 Hours: My Active Orders 07/09/18 17:47 EKG 12 Lead [EKG Documentation Completion] [RC] STAT 07/09/18 17:48 Peripheral IV Care [RC] . DIRECTED Peripheral IV Insertion Adult [OM.PC] Stat 07/09/18 19:47 RT Aerosol Therapy [RC] ASDIRECTED - Assessment/Plan Last 24 Hours: My Active Orders 07/09/18 17:47 EKG 12 Lead [EKG Documentation Completion] [RC] STAT 07/09/18 17:48 Peripheral IV Care [RC] . DIRECTED Peripheral IV Insertion Adult [OM.PC] Stat 07/09/18 19:47 RT Aerosol Therapy [RC] ASDIRECTED
--- NOTE | 2018-07-09 19:03 | CR ---
Chest: Portable view of the chest was obtained. Comparison: Prior chest x-ray of 06/29/18. Slight atelectasis is noted within the left base. Lungs otherwise are clear. Heart size and mediastinum are within normal limits for portable technique. Bony structures shows old healed left-sided rib fractures with adjacent pleural thickening. Minimal scoliosis is noted. Surgical clips and stent is noted within the upper right abdomen. Impression: 1. Incidental findings. Nothing acute is seen on portable chest x-ray. Diagnostic code #2
[2018-07-09] MEDS ORDERED: Albuterol/Ipratropium 3.0-0.5 MG/3 ML Neb Soln NEB ONE (19:47)
[2018-07-09] MEDS ORDERED: Insulin Regular, Human 100 Units/ML 3 ML Vial SUBCUT ONE (20:07)
== END 2018-07-09 20:40 | disposition home or self-care (01) ==
LOC: JD.ED 17:37
DX: R06.00 Dyspnea, unspecified (principal); I10 Essential (primary) hypertension; E78.00 Pure hypercholesterolemia, unspecified; E10.9 Type 1 diabetes mellitus without complications; J44.9 Chronic obstructive pulmonary disease, unspecified; Z79.84 Long term (current) use of oral hypoglycemic drugs; Z79.899 Other long term (current) drug therapy; Z88.8 Allergy status to other drugs, medicaments and biological substances
CPT/HCPCS: 36415; 71045; 80053; 83690; 83880; 84484; 85025; 85610; 85730; 93005; 94640; 96372; 99285; J1815; 93010; 99284; J7620-GY

== ENCOUNTER 2018-11-28 16:12 | Emergency (ER) | payer MEDICARE, OTHER ==
[2018-11-28] MEDS ORDERED: Dextrose 5%-Lactated Ringers 1,000 ML IV SCH (17:30)
--- NOTE | 2018-11-28 17:31 | EDM.PDOC ---
ED HPI GENERAL MEDICAL PROBLEM - General Chief Complaint: Syncope Stated Complaint: [facility] Time Seen by Provider: 11/28/18 17:15 Source of Information: Reports: Patient, Family (spouse) History Limitations: Reports: No Limitations - History of Present Illness INITIAL COMMENTS - FREE TEXT/NARRATIVE: 73-year-old male presents to the ED per [facility]. Patient has been extremely weak and fatigued and anorexic since receiving chemotherapy last November 23. He is receiving chemotherapy pretty well weekly for cancer the pancreas that was diagnosed in June of this year. He is on an experimental protocol through the [facility]. Nose was stage II pancreatic cancer. He is followed both in [place] and at the [facility]. The hope is that he response to chemotherapy and the tumor shrinks that would allow possible surgical intervention with a Whipple's procedure. Patient has COPD and is on oxygen 2 L/ m at all times. Stitches cough is no worse than normal but he has a hard time getting any phlegm up. No chills or rigors appreciated. He has been sleeping for 3 days without getting up much other than to void and/or taking in very minimal oral intake. He has fallen twice in the last 2 days. believes he became disoriented last night when he got up to void and slipped down 3 stairs instead of getting to the bathroom. No outward signs of major trauma and she was able to help him up. He also passed out after getting up from the easy chair go down to the floor. He is thus suffered multiple bruises but denies any pain in any of his bones. His head hard enough to cause any loss of consciousness. We don't think that he actually ever lost consciousness. Blood pressure at home was recorded as low as 80 systolic. Paramedics came 500 mils normal saline bolus en route to the hospital. BP at this time is now 110/80. Patient is alert and oriented and answers all questions appropriately. He's had a previous stroke. His fills in some of the blanks but he can answer all questions on his own. Patient is taking insulin for type 2 diabetes. His insulin needs have decreased substantially with weight loss over the last 4 months. Onset: Gradual Onset Date: 11/23/18 (Received chemotherapy intravenously on the November 23 for pancreatic cancer and started to feel unwell the following day and spent 3 days. Will bed confined.) Duration: Day(s):, Constant, Other ([place] faint and weak. Passed out twice or suffering orthostatic hypotension and went down to the floor on 2 occasions in the last 3 days.) Location: Reports: Abdomen (Has constant mid abdominal pain pressure discomfort which he takes no pain medications.), Upper Extremity, Left (Has a large bruise to the lateral upper arm over the deltoid musculature and slightly inferior to the insertion site of the deltoid tendon. I explained 10 cm in diameter and markedly ecchymotic appears to be a couple of days old.), Lower Extremity, Left (She does have rotator cuff surgery in the left side is limited abduction of his shoulder. He states unchanged from prior. He has bruises to his left dorsal hand and wrist area but full range of motion.), Lower Extremity, Right (Bruises right lateral leg and knee area.). Denies: Head, Face, Neck, Chest, Back, Pelvis Quality: Reports: Other (Multiple contusions and juices but no open wounds.) Severity: Moderate Improves with: Reports: Rest Worsens with: Reports: Other (Gets lightheaded dizzy with standing and is very weak.) Context: Reports: Other (Receiving chemotherapy at present for pancreatic cancer diagnosed in June of this year. This causes anorexia complete loss of appetite). Denies: Activity ( Suffering malnutrition.), Exercise, Lifting, Sick Contact, Trauma Associated Symptoms: Reports: Headaches, Loss of Appetite ( and severe fatigue.) , Malaise, Nausea/Vomiting, Shortness of Breath (Philip shortness breath with productive sounding cough due to COPD. Paranasal worse than normal according to his and the patient. Not bringing up much sputum.), Syncope, Weakness ( Near syncope at least sounds like orthostatic hypotension events 2 in the last 3 days. Her weakness). Denies: Diaphoresis, Rash, Seizure (Mild nausea with no vomiting) Treatments [employer]PER[employer]: Reports: Other (see below) (None.) - Related Data Allergies Allergy/AdvReac Type Severity Reaction Status Date / Time vitamin E (d-alpha Allergy Rash Verified 11/28/18 16:58 tocopherol) [vitamin E] Home Meds: Home Meds Albuterol [Proventil HFA] 2 puff INH Q6H PRN 06/22/15 [History] Clopidogrel [Plavix] 75 mg PO PCDINNER 06/22/15 [History] atorvaSTATin Calcium [Atorvastatin Calcium] 20 mg PO BEDTIME 06/22/15 [History] Formoterol Fumarate [Perforomist] 2 ml NEB BID PRN 06/28/18 [History] Furosemide [Lasix] 20 mg PO DAILY 11/28/18 [History] Insulin Aspart [NovoLOG] 0 unit SQ ASDIRECTED PRN 11/28/18 [History] Insulin Glarg,Human.Rec.Analog [Lantus Solostar] 20 unit SQ DAILY 11/28/18 [ History] Pantoprazole Sodium [Protonix] 40 mg PO ASDIRECTED 11/28/18 [History] Promethazine [Phenergan] 1 applic TOP ASDIRECTED 11/28/18 [History] Sennosides [Senokot] 2 tab PO BID 11/28/18 [History] levoFLOXacin [Levaquin] 500 mg PO DAILY #9 tab 11/28/18 [Rx] Past Medical History Other HEENT History: BILATERAL SENSORNEURAL HEARING LOSS, DENTURES - PT STATES HE DOESN'T WEAR THEM Cardiovascular History: Reports: High Cholesterol, Hypertension Other Cardiovascular History: HX OF VARICOSE VEINS Respiratory History: Reports: COPD, Sleep Apnea Gastrointestinal History: Reports: Pancreatitis Other Gastrointestinal History: HX OF GALL STONES, had stent placed in bile duct , mass on pancreas Musculoskeletal History: Reports: Gout Other Musculoskeletal History: RIGHT SHOULDER PAIN, DECREASED ROM, ROTATOR CUFF TEAR Neurological History: Reports: CVA, TIA Endocrine/Metabolic History: Reports: Diabetes, Type I Oncologic (Cancer) History: Reports: Pancreatic (Diagnosis stage II pancreatic cancer in June of this year. Currently followed both in [place] by oncology services and at the [facility]. Currently receiving chemotherapy weekly through Port-A-Cath right upper anterior chest.) Dermatologic History: Reports: Eczema Other Dermatologic History: SEBORRHEIC KERATOSIS, ECZEMA - Past Surgical History Cardiovascular Surgical History: Reports: Carotid Endarterectomy GI Surgical History: Reports: Cholecystectomy Musculoskeletal Surgical History: Reports: Other (See Below) Social & Family History - Family History HEENT: Reports: Cataract, Glaucoma Cardiac: Reports: Heart Failure, High Cholesterol, Hypertension, [place] OBGYN: Reports: Musculoskeletal: Reports: Arthritis Neurological: Reports: CVA, TIA Endocrine/Metabolic: Reports: Diabetes, Type I Hematologic: Reports: Anemia - Caffeine Use Caffeine Use: Reports: Soda - Living Situation & Occupation Living situation: Reports: Occupation: Disabled ED ROS GENERAL - Review of Systems Review Of Systems: See Below Constitutional: Reports: Malaise, Weakness, Fatigue, Decreased Appetite, Weight Loss (He estimates about a 65 pound weight loss since diagnosis. His insulin needs have decreased by about one half.). Denies: Fever, Chills HEENT: Reports: No Symptoms Respiratory: Reports: Shortness of Breath, Wheezing, Cough, Sputum (Not getting up much sputum. Is chronically short of breath due to COPD. He is on oxygen at 2 L/m at all times.). Denies: Pleuritic Chest Pain Cardiovascular: Reports: Blood Pressure Problem (Blood pressures been running very low), Dyspnea on Exertion (Mild lower extremities.), Edema, Lightheadedness. Denies: Chest Pain, Claudication ( systolic as low as 80 recorded at home.), Orthopnea, Palpitations Endocrine: Reports: Fatigue GI/Abdominal: Reports: Abdominal Pain (Abdominal pain which radiates across both sides of the abdomen but not into his back. Date is not enough to need pain medication for.), Diarrhea (Stools are on the low side because of stool softeners that he takes to make sure that he does not become constipated.) : Reports: Frequency. Denies: Dysuria, Flank Pain Musculoskeletal: Reports: Joint Pain (Left shoulder pain. Seemed to get worse after aggressive physiotherapy since rotator cuff surgery. Not able to abduct past 90.) Skin: Reports: Bruising (Multiple ecchymotic areas from falling. Balls all of his limbs) Neurological: Reports: Dizziness, Difficulty Walking, Weakness. Denies: Confusion, Headache, Numbness, Syncope, Tingling, Tremors, Trouble Speaking ( Requires help walking.), Change in Speech Psychiatric: Reports: No Symptoms Hematologic/Lymphatic: Reports: Anemia (He has been anemic.), Easy Bruising Immunologic: Reports: Other (Consider immunocompromised due to chemotherapy for pancreatic cancer.) - Physical Exam Exam: See Below Exam Limited By: No Limitations General Appearance: Alert, WD/WN, Other (Appears quite pallid. He has no hair. No outward signs of head or facial trauma.) Eye Exam: Bilateral Eye: PERRL, Other (Peripheral margins are moderately pallid. ) Ears: Normal TMs Throat/Mouth: Normal Oropharynx (Tongue is mildly coated. Or fractures otherwise normal), Other Head Exam: Atraumatic, Normocephalic. No: Facial Abrasions, Facial Ecchymosis, Facial Lacerations Neck: Normal Inspection, Supple, Non-Tender, Full Range of Motion. No: Carotid Bruit, Lymphadenopathy (L), Lymphadenopathy (R) Respiratory/Chest: No Accessory Muscle Use, Chest Non-Tender, Respiratory Distress, Rhonchi (Scattered throughout both upper lungs.), Wheezing, Other ( Port-A-Cath right upper anterior chest. Localized bruising indicate is that he has been accessed recently.). No: Lungs Clear (Borderline tachypnea 18-20/m.), Normal Breath Sounds Cardiovascular: Normal Peripheral Pulses, Regular Rate, Rhythm, No Gallop, No Murmur, No Rub. No: No Edema GI/Abdominal: Soft (Bowel sounds are slightly quiet sent in all 4 quadrants.), Non-Tender, No Organomegaly, No Abnormal Bruit, No Mass, Pelvis Stable, Abnormal Bowel Sounds, Other (Male) Exam: No Hernia Neuro Exam (Abbreviated): Alert, Oriented, CN II-XII Intact, Normal Cognition, No Motor/Sensory Deficits. No: Normal Gait Back Exam: Normal Inspection, Full Range of Motion. No: CVA Tenderness (L), CVA Tenderness (R) Extremities: Other (Amended range of motion of his left shoulder can't go past 90 abduction. Patient has multiple ecchymoses particularly right upper arm over the deltoid musculature. No evidence of fracture or clavicles humeri. Full pronation supination at the elbows and no injuries to the wrists. Left dorsal hand is black and blue but no is no fractures.) Psychiatric: Normal Affect, Normal Mood Skin Exam: Warm, Dry, Intact, Normal Color, No Rash, Pallor (Moderately pallid.) Course - Vital Signs Last Recorded V/S: Last Vital Signs Temp 36.6 C 11/28/18 20:05 Pulse 78 11/28/18 20:05 Resp 24 H 11/28/18 20:05 BP 113/68 11/28/18 20:05 Pulse Ox 99 11/28/18 20:05 - Orders/Labs/Meds Orders: Active Orders 24 hr Category Date Time Status Blood Glucose Check, Bedside [RC] ONETIME Care 11/28/18 17:34 Active Oxygen Therapy [RC] ASDIRECTED Care 11/28/18 17:26 Active Chest 1V Frontal [CR] Stat Exams 11/28/18 17:27 Taken CULTURE BLOOD [BC] Stat Lab 11/28/18 17:45 Received CULTURE BLOOD [BC] Stat Lab 11/28/18 17:59 Received Blood Culture x2 Reflex Set [OM.PC] Stat Oth 11/28/18 17:26 Ordered Labs: Laboratory Tests 11/28/18 11/28/18 11/28/18 Range/Units 17:45 17:45 17:45 WBC 1.22 L* (4.23-9.07) K/mm3 RBC 3.09 L (4.63-6.08) M/mm3 Hgb 8.0 L D (13.7-17.5) gm/L Hct 25.7 L (40.1-51.0) % MCV 83.2 (79.0-92.2) fl MCH 25.9 (25.7-32.2) pg MCHC 31.1 L (32.2-35.5) g/dl RDW Std Deviation 48.8 H (35.1-43.9) fL Plt Count 151 L (163-337) K/mm3 MPV 10.0 (9.4-12.3) fl Neutrophils % (Manual) 51 (40-60) % Band Neutrophils % 0 (0-10) % Lymphocytes % (Manual) 25 (20-40) % Atypical Lymphs % 0 % Monocytes % (Manual) 19 H (2-10) % Eosinophils % (Manual) 4 (0.8-7.0) % Basophils % (Manual) 1 (0.2-1.2) Platelet Estimate Adequate Anisocytosis 1+ slight RBC Morph Comment registry np PT 11.2 (9.7-12.0) SECONDS INR 1.03 APTT 28 (22-31) SECONDS Sodium 137 (136-145) mEq/L Potassium 4.7 (3.5-5.1) mEq/L Chloride 106 (98-107) mEq/L Carbon Dioxide 31 (21-32) mEq/L Anion Gap 4.7 L (5-15) BUN 8 (7-18) mg/dL Creatinine 0.7 (0.7-1.3) mg/dL Est Cr Clr Drug Dosing 87.35 mL/min Estimated GFR (MDRD) > 60 (>60) mL/min BUN/Creatinine Ratio 11.4 L (14-18) Glucose 178 H (83-115) mg/dL Lactic Acid (0.4-2.0) mmol/L Calcium 8.3 L (8.5-10.1) mg/dL Magnesium 2.2 (1.8-2.4) mg/dl Total Bilirubin 0.5 (0.2-1.0) mg/dL AST 28 (15-37) U/L ALT 49 (16-63) U/L Alkaline Phosphatase 201 H (46-116) U/L C-Reactive Protein 4.0 H* (<1.0) mg/dL NT-Pro-B Natriuret Pep (0-125) pg/mL Total Protein 5.3 L (6.4-8.2) g/dl Albumin 2.1 L (3.4-5.0) g/dl Globulin 3.2 gm/dL Albumin/Globulin Ratio 0.7 L (1-2) Lipase 77 (73-393) U/L Urine Color (Yellow) Urine Appearance (Clear) Urine pH (5.0-8.0) Ur Specific [place] (1.005-1.030) Urine Protein (Negative) Urine Glucose (UA) (Negative) Urine Ketones (Negative) Urine Occult Blood (Negative) Urine Nitrite (Negative) Urine Bilirubin (Negative) Urine Urobilinogen (0.2-1.0) Ur Leukocyte Esterase (Negative) Urine RBC (0-5) /hpf Urine WBC (0-5) /hpf Ur Squamous Epith Cells (0-5) /hpf Urine Bacteria (FEW) /hpf Urine Mucus (FEW) /hpf 11/28/18 11/28/18 11/28/18 Range/Units 17:45 17:45 19:51 WBC (4.23-9.07) K/mm3 RBC (4.63-6.08) M/mm3 Hgb (13.7-17.5) gm/L Hct (40.1-51.0) % MCV (79.0-92.2) fl MCH (25.7-32.2) pg MCHC (32.2-35.5) g/dl RDW Std Deviation (35.1-43.9) fL Plt Count (163-337) K/mm3 MPV (9.4-12.3) fl Neutrophils % (Manual) (40-60) % Band Neutrophils % (0-10) % Lymphocytes % (Manual) (20-40) % Atypical Lymphs % % Monocytes % (Manual) (2-10) % Eosinophils % (Manual) (0.8-7.0) % Basophils % (Manual) (0.2-1.2) Platelet Estimate Anisocytosis RBC Morph Comment PT (9.7-12.0) SECONDS INR APTT (22-31) SECONDS Sodium (136-145) mEq/L Potassium (3.5-5.1) mEq/L Chloride (98-107) mEq/L Carbon Dioxide (21-32) mEq/L Anion Gap (5-15) BUN (7-18) mg/dL Creatinine (0.7-1.3) mg/dL Est Cr Clr Drug Dosing mL/min Estimated GFR (MDRD) (>60) mL/min BUN/Creatinine Ratio (14-18) Glucose (83-115) mg/dL Lactic Acid 1.4 (0.4-2.0) mmol/L Calcium (8.5-10.1) mg/dL Magnesium (1.8-2.4) mg/dl Total Bilirubin (0.2-1.0) mg/dL AST (15-37) U/L ALT (16-63) U/L Alkaline Phosphatase (46-116) U/L C-Reactive Protein (<1.0) mg/dL NT-Pro-B Natriuret Pep 391 H (0-125) pg/mL Total Protein (6.4-8.2) g/dl Albumin (3.4-5.0) g/dl Globulin gm/dL Albumin/Globulin Ratio (1-2) Lipase (73-393) U/L Urine Color Yellow (Yellow) Urine Appearance Clear (Clear) Urine pH 7.0 (5.0-8.0) Ur Specific [place] 1.020 (1.005-1.030) Urine Protein Negative (Negative) Urine Glucose (UA) Trace H (Negative) Urine Ketones Negative (Negative) Urine Occult Blood Negative (Negative) Urine Nitrite Negative (Negative) Urine Bilirubin Negative (Negative) Urine Urobilinogen 0.2 (0.2-1.0) Ur Leukocyte Esterase Negative (Negative) Urine RBC 0-5 (0-5) /hpf Urine WBC 0-5 (0-5) /hpf Ur Squamous Epith Cells 0-5 (0-5) /hpf Urine Bacteria Few (FEW) /hpf Urine Mucus Few (FEW) /hpf Meds: Medications Discontinued Medications Generic Name Dose Route Start Last Admin Trade Name Juve PRN Reason Stop Dose Admin Dextrose/Lactated Ringer's 1,000 mls @ 999 mls/hr 11/28/18 17:30 11/28/18 17: 35 Dextrose 5%-Lactated Ringers IV 999 mls/hr ASDIRECTED JOSELINE Administration Levofloxacin/Dextrose 750 mg/ 150 mls @ 100 mls/hr 11/28/18 18:43 11/28/18 19 :10 Premix IV 11/28/18 20:12 100 mls/hr ONETIME ONE Administration - Radiology Interpretation Free Text/Narrative:: 73-year-old male presents the ED per [facility] once after experiencing syncopal episode last evening and again this afternoon. Both of these occurred when after he had gotten up from bed. Patient's blood pressures been reportedly noted been noted to be as low as 80 systolic. Patient has pancreatic cancer graded as stage II diagnosed in June of this year. Is currently on a chemotherapy program to the [facility] which is somewhat experimental. Receiving chemotherapy on a weekly basis through Port-A-Cath right upper anterior chest. Last treatment was November 23. He was okay the following day but since then he's been primarily in bed for 3 days with very limited oral intake. Stools tend to be on the loose side but he keeps some loose with medication. He is on no pain medication. He is an insulin-dependent diabetic and insulin needs have decreased substantially over the last 3 months. He has COPD and is on oxygen at 2 L/m all times by nasal cannula. HAS a congested sounding cough according to his and patient states she's no worse than normal. He is afebrile at this time. Paramedics gave him 500 mils of normal saline IV en route to the hospital. His blood pressure is currently 110/80. Heart rate is in the 70s. Plan D5 LR at open. O Bedside blood sugar to be checked. Routine labs to make sure that he is not neutropenic from recent chemotherapy. Chest x-ray and urinalysis. - Re-Assessments/Exams Free Text/Narrative Re-Assessment/Exam: 11/28/18 18:30 Labs confirm that he is neutropenic with a total white count of 1.22. Differential shows 51% neutrophils no bands and 25% lymphocytes. Hemoglobin is low at 8.0 with hematocrit of 25.7. MCV is 83.2. Plan account 151, 000. PT is 11.2 with an INR of 1.03. PTT is 28. Sodium is 137 with potassium of 4.7. Chloride is 106 with a bicarbonate of 31. A mild CO2 retainer. Anion gap is 4.7. BUNs 8 with a creatinine of 0.7. This suggests that he is well- hydrated. Glucose is 178. Lactic acid 1.4. Calcium 8.3. Magnesium 2.2. Liver function normal. Other than alk phosphatase elevated at 201. C-reactive protein is 4.0. BNP is 391. Total protein is 5.3 albumin fraction low at 2.1. Lipase normal at 77. Chest x-ray one view portable suggests a hazy infiltrate left lower lobe compatible with possible early pneumonia. It is certainly different than compared to previous chest x-ray. I'm therefore going to place him on antibiotic Levaquin 750 mg IV now. He'll then take Levaquin 500 mg tablet daily for another 9 days. He is due for skipping chemotherapy this next week which would be canceled anyways due to his neutropenic state. I've asked that he have lab work repeated on Thursday this week with results to go to Christiana Sierra his primary care physician. Of note the Levaquin may interact with his promethazine but he's not taking it on a regular basis. 11/28/18 20:15 blood pressure is 113/68 semi-recline. He has about 45 minutes of IV Levaquin to be infused. Departure - Departure Time of Disposition: 20:45 Disposition: Home, Self-Care 01 Condition: Fair Clinical Impression: Orthostatic hypotension Neutropenia Qualifiers: Neutropenia type: secondary to cancer chemotherapy Qualified Code(s): D70.1 - Agranulocytosis secondary to cancer chemotherapy Pneumonia Qualifiers: Pneumonia type: due to unspecified organism Laterality: left Lung location: lower lobe of lung Qualified Code(s): J18.1 - Lobar pneumonia, unspecified organism - Discharge Information *PRESCRIPTION DRUG MONITORING PROGRAM REVIEWED*: No *COPY OF PRESCRIPTION DRUG MONITORING REPORT IN PATIENT [place]: No Prescriptions: levoFLOXacin [Levaquin] 500 mg PO DAILY #9 tab Instructions: Neutropenia, Community-Acquired Pneumonia, Adult, [id number] Referrals: Christiana Sierra MD [Primary Care Provider] - Forms: ED Department Discharge Additional Instructions: Evaluation the emergency room today in regards to generalized weakness and fainting spells or syncopal events 2 in the last few days. Since last bout of chemotherapy October 23 it has made you very fatigued and ill and you have spent reportedly 3 days in bed. I believe you have a very low-grade fever. Nurses recorded temperature 37.8. Normal is 37. Chronic productive cough due to COPD. Lab work reveals that you are immunocompromised with a very low white blood cell count of 1.22. Normal is greater than 4. The differential on the white count is normal. Your hemoglobin is low at 8.0. Normal is around 14. This is your red cell count. The red cells also transport oxygen which would make you much more short of breath on minimal exertion and also make you work harder to breathe and to be mobile. The lab work suggest that you have been doing okay as far as her fluid intake and that you were not significantly volume depleted. No major electrolyte abnormalities were noted. Chest x-ray suggests an early infiltrate left lower lobe of the lung suspicious for an early pneumonia developing. Decision made to treat you with antibiotic and were therefore given Levaquin 750 g intravenously in the ED for suspect pneumonia and immunocompromised state. He will need to take Levaquin tablet 500 mg daily for the next 9 days at bedtime. He to return to the hospital if you develop severe rigors or chills with your teeth chattering and/or fever greater than 101. He will need repeat lab test done on Thursday next week December 01 and the results will be sent to Dr. Sierra your primary care provider. Follow-up with Dr. Sierra return to the ED if any further problems occur. Otherwise the plan is to follow- up at the [facility] on December 06 to reevaluate current chemotherapy treatment plan and see how well the pancreatic cancer has perhaps responded to treatment. - My Orders Last 24 Hours: My Active Orders 11/28/18 17:26 Oxygen Therapy [RC] ASDIRECTED Blood Culture x2 Reflex Set [OM.PC] Stat 11/28/18 17:27 Chest 1V Frontal [CR] Stat 11/28/18 17:34 Blood Glucose Check, Bedside [RC] ONETIME 11/28/18 17:45 CULTURE BLOOD [BC] Stat 11/28/18 17:59 CULTURE BLOOD [BC] Stat - Assessment/Plan Last 24 Hours: My Active Orders 11/28/18 17:26 Oxygen Therapy [RC] ASDIRECTED Blood Culture x2 Reflex Set [OM.PC] Stat 11/28/18 17:27 Chest 1V Frontal [CR] Stat 11/28/18 17:34 Blood Glucose Check, Bedside [RC] ONETIME 11/28/18 17:45 CULTURE BLOOD [BC] Stat 11/28/18 17:59 CULTURE BLOOD [BC] Stat
[2018-11-28] MEDS ORDERED: Levofloxacin/Dextrose 5%-Water 750 MG in Premix Bag 1 BAG IV ONE (18:43)
[2018-11-28 20:08] VITALS: BP 113/68
--- NOTE | 2018-11-29 07:00 | CR ---
Chest: Portable view of the chest was obtained. Comparison: Prior chest x-ray of 08/09/18. Very slight increased density is noted within the left base. Lungs otherwise are clear. Right-sided infusion port is seen. Heart size and mediastinum are normal. Bony structures are grossly intact. Impression: 1. Slight density within the left base. Findings may represent focal bronchitis versus atelectasis. 2. Right-sided infusion catheter as an interval change from prior exam. 3. No other acute abnormality is seen. Diagnostic code #3
== END 2018-11-28 20:50 | disposition home or self-care (01) ==
LOC: JD.ED 16:12 → SUPCPDRO 16:12 → JD.ED 20:50
DX: D70.2 Other drug-induced agranulocytosis (principal); C25.9 Malignant neoplasm of pancreas, unspecified; S60.212A Contusion of left wrist, initial encounter; S80.01XA Contusion of right knee, initial encounter; I95.1 Orthostatic hypotension; J18.1 Lobar pneumonia, unspecified organism; E10.9 Type 1 diabetes mellitus without complications; I10 Essential (primary) hypertension; J44.9 Chronic obstructive pulmonary disease, unspecified; E78.00 Pure hypercholesterolemia, unspecified; Z86.73 Personal history of transient ischemic attack (TIA), and cerebral infarction without residual deficits; Z90.49 Acquired absence of other specified parts of digestive tract; Z88.8 Allergy status to other drugs, medicaments and biological substances; W10.9XXA Fall (on) (from) unspecified stairs and steps, initial encounter
CPT/HCPCS: 36415; 71045; 80053; 81001; 82962; 83605; 83690; 83735; 83880; 85007; 85027; 85610; 85730; 86140; 87040; 96361; 96365; 99284; J1956; J7042

== ENCOUNTER 2018-12-17 13:24 | Emergency (ER) | payer MEDICARE, OTHER | END 2018-12-17 14:00 | LOC: JD.ED 13:24 | DX: Z53.21 Procedure and treatment not carried out due to patient leaving prior to being seen by health care provider (principal) ==

== ENCOUNTER 2018-12-27 21:00 | Emergency (ER) | payer MEDICARE, OTHER ==
[2018-12-27 21:10] VITALS: BP 111/78; PULSE 84
--- NOTE | 2018-12-27 21:34 | EDM.PDOC ---
ED HPI GENERAL MEDICAL PROBLEM - General Chief Complaint: Gastrointestinal Problem Stated Complaint: feeding tube Time Seen by Provider: 12/27/18 21:12 Source of Information: Reports: Patient, Family () History Limitations: Reports: No Limitations - History of Present Illness INITIAL COMMENTS - FREE TEXT/NARRATIVE: Mr. Leal is a very pleasant 73-year-old man with past medical history significant for pancreatic cancer diagnosed in June of this year, on chemotherapy, who received a gastro-jejunal tube 12/14/[address] [facility]. The patient receives tube feedings, facilitated by a pump. The patient's states that the system was working fine up until tonight. She states that she flushed both the gastric lumen and the jejunal lumen, but when she started the pump, she could see that fluid went through the tubing all the way up to the interface between the tubing and the G-J tube, at which time it stopped. When she disconnected the tubing from the G-J tube, there was no output from the tubing, indicating a problem with the pump, not with the G-J tube. The patient states that he has a chronic cough due to his COPD, otherwise, he has not had a recent fever, chills, dyspnea, chest discomfort, palpitations, nausea, vomiting, constipation, diarrhea, abdominal pain, urinary symptoms, recent bloody bowel movements or black problems, recent weight gain or weight loss, headaches, or rashes. The patient's PCP is Dr. Christiana Sierra. His Oncologists are at [facility]. - Related Data Allergies Allergy/AdvReac Type Severity Reaction Status Date / Time vitamin E (d-alpha Allergy Rash Verified 12/27/18 21:09 tocopherol) [vitamin E] Home Meds: Home Meds Albuterol [Proventil HFA] 2 puff INH Q6H PRN 06/22/15 [History] atorvaSTATin Calcium [Atorvastatin Calcium] 20 mg PO BEDTIME 06/22/15 [History] Formoterol Fumarate [Perforomist] 2 ml NEB BID PRN 06/28/18 [History] Insulin Glarg,Human.Rec.Analog [Lantus Solostar] 10 unit SQ DAILY 11/28/18 [ History] Sennosides [Senokot] 2 tab PO BID 11/28/18 [History] Past Medical History HEENT History: Reports: Hard of Hearing Cardiovascular History: Reports: High Cholesterol, Hypertension Respiratory History: Reports: COPD (PFT-confirmed), Sleep Apnea (nightly BiPAP + O2) Musculoskeletal History: Reports: Gout (suspected, not confirmed) Neurological History: Reports: CVA (left hemiparesis) Endocrine/Metabolic History: Reports: Diabetes, Type II Hematologic History: Reports: Blood Transfusion(s) Oncologic (Cancer) History: Reports: Pancreatic (s/p CTx) Dermatologic History: Reports: Eczema - Past Surgical History HEENT Surgical History: Reports: Cataract Surgery (bilateral) Cardiovascular Surgical History: Reports: Carotid Endarterectomy (right), Other (See Below) (Right Port-A-Cath) GI Surgical History: Reports: Cholecystectomy (2010), ERCP (with CBD stent) Musculoskeletal Surgical History: Reports: Shoulder Surgery (right, arthroscopic ) Social & Family History - Family History Family Medical History: Noncontributory HEENT: Reports: Cataract, Glaucoma Cardiac: Reports: Heart Failure, High Cholesterol, Hypertension, [place] OBGYN: Reports: Musculoskeletal: Reports: Arthritis Neurological: Reports: CVA, TIA Endocrine/Metabolic: Reports: Diabetes, Type I Hematologic: Reports: Anemia - Tobacco Use Smoking Status *Q: Former Smoker Years of Tobacco use: 39 Packs/Tins Daily: 1 Month/Year Tobacco Last Used: Quit 2004 - Caffeine Use Caffeine Use: Reports: Soda - Alcohol Use Alcohol Use History: No - Recreational Drug Use Recreational Drug Use: No - Living Situation & Occupation Living situation: Reports: , with Spouse Occupation: Retired ED ROS GENERAL - Review of Systems Review Of Systems: ROS reveals no pertinent complaints other than HPI. ED EXAM, GI/ABD - Physical Exam Exam: See Below Exam Limited By: No Limitations General Appearance: Alert, WD/WN, No Apparent Distress Eyes: Bilateral: Normal Appearance, EOMI Ears: Normal External Exam, Hearing Loss Nose: Normal Inspection Throat/Mouth: Normal Inspection, Normal Lips, No Airway Compromise Head: Atraumatic, Normocephalic Neck: Normal Inspection, Full Range of Motion Respiratory/Chest: No Respiratory Distress, Lungs Clear, Normal Breath Sounds, No Accessory Muscle Use Cardiovascular: Normal Peripheral Pulses, Regular Rate, Rhythm, No Edema, No Gallop, No JVD, No Murmur, No Rub GI/Abdominal Exam: Normal Bowel Sounds, Soft, Non-Tender, No Organomegaly, No Distention, No Abnormal Bruit, No Mass, Other (G-J tube site at epigastrium is C /D/I) (Male) Exam: Deferred Rectal (Males) Exam: Deferred Back Exam: Normal Inspection, Full Range of Motion, NT Extremities: Normal Inspection, Normal Range of Motion, No Pedal Edema, Normal Capillary Refill Neurological: Alert, Oriented, Normal Cognition, Other (Left hemiparesis) Psychiatric: Normal Affect Skin Exam: Warm, Dry, Intact, Normal Color, No Rash Course - Vital Signs Last Recorded V/S: Last Vital Signs Temp 36.6 C 12/27/18 21:07 Pulse 84 12/27/18 21:07 Resp 19 12/27/18 21:07 BP 111/78 12/27/18 21:07 Pulse Ox 93 L 12/27/18 21:07 - Re-Assessments/Exams Free Text/Narrative Re-Assessment/Exam: 12/27/18 21:35 Terence FERRIS has been working with the patient's , and it appears that the problem is related to the pump settings. The interval is supposed to be set at "indefinite", but was somehow switched to "none". They are working to try to resolve the issue. The pump was issued by [facility]. 12/27/18 22:25 Gini FERRIS called the pump hotline and was able to get the pump working properly again. I will discharge the patient home. Departure - Departure Time of Disposition: 22:26 Disposition: Home, Self-Care 01 Condition: Good Clinical Impression: Feeding tube dysfunction - Discharge Information *PRESCRIPTION DRUG MONITORING PROGRAM REVIEWED*: Not Applicable *COPY OF PRESCRIPTION DRUG MONITORING REPORT IN PATIENT LANDEN: Not Applicable Referrals: Christiana Sierra MD [Primary Care Provider] - Forms: ED Department Discharge Additional Instructions: You were seen in the emergency room for problem with your G-J feeding tube pump. It was discovered that the problem was with the pump settings, not the tubing or G-J tube itself. After contacting the pump hotline, the pump is now working properly. If any other problems, please do not hesitate to return to the ER.
== END 2018-12-27 22:32 | disposition home or self-care (01) ==
LOC: JD.ED 21:00
DX: K94.29 Other complications of gastrostomy (principal); I10 Essential (primary) hypertension; E11.9 Type 2 diabetes mellitus without complications; E78.00 Pure hypercholesterolemia, unspecified; Z90.49 Acquired absence of other specified parts of digestive tract; Z87.891 Personal history of nicotine dependence; Z88.8 Allergy status to other drugs, medicaments and biological substances; Z79.4 Long term (current) use of insulin; Z79.899 Other long term (current) drug therapy
CPT/HCPCS: 99281; 99282

== ENCOUNTER 2019-03-26 20:31 | Emergency (ER) | payer MEDICARE, OTHER ==
--- NOTE | 2019-03-26 21:11 | EDM.PDOC ---
ED HPI GENERAL MEDICAL PROBLEM - General Chief Complaint: Cardiovascular Problem Stated Complaint: 77/53 BP PANCREATIC CANCER Time Seen by Provider: 03/26/19 20:38 Source of Information: Reports: Patient, Family History Limitations: Reports: No Limitations - History of Present Illness INITIAL COMMENTS - FREE TEXT/NARRATIVE: This is a 73-year-old male. In June of this year he was diagnosed with pancreatic CA. He is gone to [place] for his oncology and he is receiving chemotherapy as well as radiation therapy. His last chemo was Thursday and his radiation was last week Thursday and . Apparently over the last 4 days been having some nausea and vomiting and they have had to stop his feeds through his feeding tube because he just vomits it back up. He is on medicine for nausea but it has not been helping. Over the last 24 hours he is now starting able to drink some fluids and keep some foods down. The brings him to the ER because she noted this evening that his blood pressure was 77/56. Sugars have been well controlled due to his loss of weight. He does also have a history of COPD but he has no complaints as far shortness of breath or cough. He does have a PEG tube for his feedings. Patient appears to be alert and responsive even answer questions recent events. Denies any abdominal pain. He denies any unusual cough or congestion or short of breath. He has had no fever and no chills. Did have some diarrhea after eating at [facility] this week that has contributed to his lack of fluids. - Related Data Allergies Allergy/AdvReac Type Severity Reaction Status Date / Time vitamin E (d-alpha Allergy Rash Verified 03/26/19 20:50 tocopherol) [vitamin E] Home Meds: Home Meds Albuterol [Proventil HFA] 2 puff INH Q6H PRN 06/22/15 [History] atorvaSTATin Calcium [Atorvastatin Calcium] 20 mg PO BEDTIME 06/22/15 [History] Formoterol Fumarate [Perforomist] 2 ml NEB BID PRN 06/28/18 [History] Insulin Glarg,Human.Rec.Analog [Lantus Solostar] 10 unit SQ DAILY 11/28/18 [ History] Sennosides [Senokot] 2 tab PO BID 11/28/18 [History] Atropine/Diphenoxylate [Diphenoxylate-Atropine] 5 mg PO QID 03/26/19 [History] Gabapentin [Neurontin] 300 mg PO BID 03/26/19 [History] Lansoprazole 15 mg PO BID 03/26/19 [History] Ondansetron [Zofran] 8 mg PO Q8H PRN 03/26/19 [History] Past Medical History HEENT History: Reports: Hard of Hearing Other HEENT History: BILATERAL SENSORNEURAL HEARING LOSS, DENTURES - PT STATES HE DOESN'T WEAR THEM Cardiovascular History: Reports: High Cholesterol, Hypertension Other Cardiovascular History: HX OF VARICOSE VEINS Respiratory History: Reports: COPD, Sleep Apnea Other Respiratory History: wears Bi-PAP at noct, wears O2. Gastrointestinal History: Reports: Other (See Below) Other Gastrointestinal History: pancreatic cancer Genitourinary History: Reports: Urinary Incontinence Musculoskeletal History: Reports: Gout Other Musculoskeletal History: RIGHT SHOULDER PAIN, DECREASED ROM, ROTATOR CUFF TEAR Neurological History: Reports: CVA Endocrine/Metabolic History: Reports: Diabetes, Type II Hematologic History: Reports: Blood Transfusion(s) Immunologic History: Reports: Immunosuppression Oncologic (Cancer) History: Reports: Pancreatic Dermatologic History: Reports: Eczema Other Dermatologic History: SEBORRHEIC KERATOSIS, ECZEMA - Past Surgical History HEENT Surgical History: Reports: Cataract Surgery Cardiovascular Surgical History: Reports: Carotid Endarterectomy, Other (See Below) GI Surgical History: Reports: Cholecystectomy, ERCP Musculoskeletal Surgical History: Reports: Shoulder Surgery Social & Family History - Family History Family Medical History: Noncontributory HEENT: Reports: Cataract, Glaucoma Cardiac: Reports: Heart Failure, High Cholesterol, Hypertension, [place] OBGYN: Reports: Musculoskeletal: Reports: Arthritis Neurological: Reports: CVA, TIA Endocrine/Metabolic: Reports: Diabetes, Type I Hematologic: Reports: Anemia - Caffeine Use Caffeine Use: Reports: Soda - Living Situation & Occupation Living situation: Reports: , with Spouse Occupation: Retired ED ROS GENERAL - Review of Systems Review Of Systems: See Below Constitutional: Reports: Malaise, Weakness, Fatigue. Denies: Fever, Chills HEENT: Reports: No Symptoms. Denies: Rhinitis, Sinus Problem, Throat Swelling Respiratory: Reports: Shortness of Breath. Denies: Wheezing, Cough, Sputum Cardiovascular: Denies: Chest Pain Endocrine: Reports: No Symptoms GI/Abdominal: Reports: Diarrhea, Nausea, Vomiting, Other (Has a PEG tube noted that has been functioning appropriately). Denies: Abdominal Pain, Constipation : Reports: No Symptoms Musculoskeletal: Reports: Other (Generalized arthritic aches and pains) Skin: Reports: No Symptoms Neurological: Reports: No Symptoms Psychiatric: Reports: No Symptoms Hematologic/Lymphatic: Reports: No Symptoms ED EXAM, GENERAL - Physical Exam Exam: See Below Exam Limited By: No Limitations General Appearance: Alert, WD/WN, No Apparent Distress, Thin Eye Exam: Bilateral Eye: Normal Inspection Ears: Normal External Exam, Normal Canal, Normal TMs Nose: Normal Inspection Throat/Mouth: Normal Inspection, Normal Lips, Normal Voice, No Airway Compromise , Other (Mucous membranes are slightly dry or tacky, teeth in poor repair) Head: Normocephalic Neck: Supple Respiratory/Chest: No Respiratory Distress, Lungs Clear, Normal Breath Sounds, Other (Have decreased breath sounds in the bases but there is no crackles or wheezing or rhonchi noted, He has a port in the right anterior chest) Cardiovascular: Regular Rate, Rhythm, No Edema, No Murmur GI/Abdominal: Soft, Non-Tender, Other (Tube site appears to be clean without infection bowel sounds are positive but they are decreased) Back Exam: Decreased Range of Motion Extremities: Normal Inspection Neurological: Alert, Oriented Psychiatric: Normal Affect, Normal Mood Skin Exam: Warm, Dry, Other (Poor Skin turgor) Course - Vital Signs Last Recorded V/S: Last Vital Signs Temp 97.8 F 03/26/19 20:50 Pulse 86 03/26/19 20:50 Resp BP 98/64 03/27/19 02:36 Pulse Ox 98 03/27/19 00:30 - Orders/Labs/Meds Orders: Active Orders 24 hr Category Date Time Status Oxygen Therapy [RC] ASDIRECTED Care 03/27/19 00:06 Active NS + KCl 20mEq/L [Normal Saline with 20 mEq KCl] 1,000 Med 03/26/19 21:15 Active ml IV ASDIRECTED Medication Orders Potassium Chloride/Sodium Chloride (Normal Saline With 20 Meq Kcl) 1,000 mls @ 1,000 mls/hr IV ASDIRECTED JOSELINE Last Admin: 03/26/19 21:26 Dose: 1,000 mls/hr Labs: Laboratory Tests 03/26/19 03/26/19 03/27/19 Range/Units 21:30 21:30 00:37 WBC 5.08 (4.23-9.07) K/mm3 RBC 4.74 (4.63-6.08) M/mm3 Hgb 12.3 L D (13.7-17.5) gm/dl Hct 37.6 L (40.1-51.0) % MCV 79.3 D (79.0-92.2) fl MCH 25.9 (25.7-32.2) pg MCHC 32.7 (32.2-35.5) g/dl RDW Std Deviation 51.4 H (35.1-43.9) fL Plt Count 140 L (163-337) K/mm3 MPV 9.7 (9.4-12.3) fl Neut % (Auto) 76.1 H (34.0-67.9) % Lymph % (Auto) 3.5 L (21.8-53.1) % Adams % (Auto) 15.9 H (5.3-12.2) % Eos % (Auto) 3.5 (0.8-7.0) Baso % (Auto) 0.2 (0.1-1.2) % Neut # (Auto) 3.86 (1.78-5.38) K/mm3 Lymph # (Auto) 0.18 L (1.32-3.57) K/mm3 Adams # (Auto) 0.81 (0.30-0.82) K/mm3 Eos # (Auto) 0.18 (0.04-0.54) K/mm3 Baso # (Auto) 0.01 (0.01-0.08) K/mm3 Manual Slide Review Abnormal smear Sodium 137 (136-145) mEq/L Potassium 3.7 (3.5-5.1) mEq/L Chloride 102 (98-107) mEq/L Carbon Dioxide 30 (21-32) mEq/L Anion Gap 8.7 (5-15) BUN 15 (7-18) mg/dL Creatinine 0.6 L (0.7-1.3) mg/dL Est Cr Clr Drug Dosing 98.23 mL/min Estimated GFR (MDRD) > 60 (>60) mL/min BUN/Creatinine Ratio 25.0 H (14-18) Glucose 157 H (83-115) mg/dL Calcium 7.7 L (8.5-10.1) mg/dL Total Bilirubin 0.7 (0.2-1.0) mg/dL AST 11 L (15-37) U/L ALT 12 L (16-63) U/L Alkaline Phosphatase 85 (46-116) U/L Total Protein 5.0 L (6.4-8.2) g/dl Albumin 1.7 L (3.4-5.0) g/dl Globulin 3.3 gm/dL Albumin/Globulin Ratio 0.5 L (1-2) Lipase 69 L (73-393) U/L Urine Color Juliette H (Yellow) Urine Appearance Cloudy H (Clear) Urine pH 5.5 (5.0-8.0) Ur Specific [place] > or = 1.030 (1.005-1.030) Urine Protein Trace H (Negative) Urine Glucose (UA) 1+ H (Negative) Urine Ketones Negative (Negative) Urine Occult Blood Negative (Negative) Urine Nitrite Negative (Negative) Urine Bilirubin Negative (Negative) Urine Urobilinogen 1.0 (0.2-1.0) Ur Leukocyte Esterase Negative (Negative) Urine RBC Not seen (0-5) /hpf Urine WBC 0-5 (0-5) /hpf Ur Epithelial Cells 0-5 (0-5) /hpf Calcium Oxalate Crystal Moderate H (NONE) Urine Bacteria Few (FEW) /hpf Urine Mucus Many H (FEW) /hpf Meds: Medications Generic Name Dose Route Start Last Admin Trade Name Freq PRN Reason Stop Dose Admin Potassium Chloride/Sodium Chloride 1,000 mls @ 1,000 mls/hr 03/26/19 21:15 21:26 Normal Saline With 20 Meq Kcl IV 1,000 mls/hr ASDIRECTED JOSELINE Administration Discontinued Medications Generic Name Dose Route Start Last Admin Trade Name Freq PRN Reason Stop Dose Admin Sodium Chloride 1,000 mls @ 999 mls/hr 03/26/19 22:42 03/26/19 22:50 Normal Saline IV 03/26/19 23:42 999 mls/hr ONETIME ONE Administration Sodium Chloride 1,000 mls @ 999 mls/hr 03/27/19 00:06 03/27/19 00:13 Normal Saline IV 03/27/19 01:06 999 mls/hr ONETIME ONE Administration Sodium Chloride 1,000 mls @ 999 mls/hr 03/27/19 01:26 03/27/19 01:36 Normal Saline IV 03/27/19 02:26 999 mls/hr ONETIME ONE Administration - Re-Assessments/Exams Free Text/Narrative Re-Assessment/Exam: 03/26/19 22:12 Patient is receiving fluids and tolerating with no difficulty. His blood pressure is still somewhat low we will continue with fluids until we get a normal blood pressure reading. 03/27/19 02:53 The patient has received a total of 4 L of fluids and still has rather dark urine but he says he feels much better and the is satisfied and wants to take him home. He did have half of a candy bar while he was here and kept it down with no difficulty. She is going to start back on his tube feeds this evening and push fluids today to make sure he stays hydrated. His last blood pressure was 98/64. He normally runs somewhere between 100-110 systolic. For the fourth liter of fluids his lungs were still clear without evidence of any crackles or rales. Has been up and walking around and going to the bathroom with no signs or complaints of dizziness or lightheadedness. Departure - Departure Time of Disposition: 02:54 Disposition: Home, Self-Care 01 Condition: Fair Clinical Impression: Dehydration, moderate, Hypocalcemia, Hypoproteinemia Nausea & vomiting Qualifiers: Vomiting type: unspecified Vomiting Intractability: non-intractable Qualified Code(s): R11.2 - Nausea with vomiting, unspecified Low blood pressure Qualifiers: Hypotension type: hypotension due to hypovolemia Qualified Code(s): I95.89 - Other hypotension; E86.1 - Hypovolemia Pancreatic cancer Qualifiers: Pancreatic malignancy location: head of pancreas Qualified Code(s): C25.0 - Malignant neoplasm of head of pancreas Instructions: Dehydration, Adult, [id number] Referrals: Christiana Sierar MD [Primary Care Provider] - Forms: ED Department Discharge Additional Instructions: Continue to push fluids today and remain hydrated, this evening start the tube feeds again and just try 1 unit to start with to see how he tolerates it and if he tolerates it well continue with the other 2 units, follow-up with his physician this coming week for recheck, return to the ER as needed Sepsis Event Note - Evaluation Sepsis Screening Result: No Definite Risk - Focused Exam Vital Signs: Vital Signs Temp Pulse BP Pulse Ox Pulse Ox 03/27/19 02:36 98/64 03/27/19 00:30 98 03/26/19 20:50 97.8 F 86 99/67 91 L Date Exam was Performed: 03/27/19 Time Exam was Performed: 02:53 - My Orders Last 24 Hours: My Active Orders 03/26/19 21:15 NS + KCl 20mEq/L [Normal Saline with 20 mEq KCl] 1,000 ml IV ASDIRECTED 03/27/19 00:06 Oxygen Therapy [RC] ASDIRECTED - Assessment/Plan Last 24 Hours: My Active Orders 03/26/19 21:15 NS + KCl 20mEq/L [Normal Saline with 20 mEq KCl] 1,000 ml IV ASDIRECTED 03/27/19 00:06 Oxygen Therapy [RC] ASDIRECTED
[2019-03-26] MEDS ORDERED: NS + KCl 20mEq/L 1,000 ML IV SCH (21:15)
[2019-03-26] MEDS ORDERED: Sodium Chloride 0.9% 1,000 ML IV ONE (22:42)
[2019-03-27] MEDS ORDERED: Sodium Chloride 0.9% 1,000 ML IV ONE ×2 (00:06→01:26)
[2019-03-27 03:09] VITALS: BP 97/58; PULSE 89
== END 2019-03-27 03:09 | disposition home or self-care (01) ==
LOC: JD.ED 20:31
DX: C25.0 Malignant neoplasm of head of pancreas (principal); E86.0 Dehydration; E83.51 Hypocalcemia; E77.8 Other disorders of glycoprotein metabolism; R11.2 Nausea with vomiting, unspecified; I95.89 Other hypotension; J44.9 Chronic obstructive pulmonary disease, unspecified; H90.5 Unspecified sensorineural hearing loss; E78.00 Pure hypercholesterolemia, unspecified; I10 Essential (primary) hypertension; G47.30 Sleep apnea, unspecified; E11.9 Type 2 diabetes mellitus without complications; Z88.8 Allergy status to other drugs, medicaments and biological substances; Z79.4 Long term (current) use of insulin; Z79.899 Other long term (current) drug therapy; Z86.73 Personal history of transient ischemic attack (TIA), and cerebral infarction without residual deficits
CPT/HCPCS: 36415; 80053; 81001; 83690; 85025; 94762; 96360; 96361; 99284-25; J3480; J7030

== ENCOUNTER 2019-04-14 18:07 | Emergency (ER) | payer MEDICARE, OTHER ==
[2019-04-14 18:42] VITALS: PULSE 121
[2019-04-14] MEDS ORDERED: Sodium Chloride 0.9% 1,000 ML IV ONE (18:50)
[2019-04-14] MEDS ORDERED: Sodium Chloride 0.9% 10 ML Syringe FLUSH PRN (18:50)
--- NOTE | 2019-04-14 19:01 | EDM.PDOC ---
ED HPI GENERAL MEDICAL PROBLEM - General Chief Complaint: General Stated Complaint: FEEDING TUBE Time Seen by Provider: 04/14/19 18:44 Source of Information: Reports: Patient, RN Notes Reviewed History Limitations: Reports: No Limitations - History of Present Illness INITIAL COMMENTS - FREE TEXT/NARRATIVE: Patient is a 73-year-old male who is brought into the ED by his for the evaluation of a possible dislodged feeding tube. The notes that he has a feeding tube placed to his abdomen, she believes this to be a J-tube. She notes she was doing cares today, when she thought maybe she ended up dislodging it partially. She states that she thought she saw the balloon, she pushed it back in this right spot. However the patient appears to be a little bit tender around the area. The noted that the balloon seem to be wrapped around the tube when it was dislodged. The is not sure the name of the tube that is placed, and she states she does not have an extra one at home however she does have the name of the tube at home if needed. Patient has this tube due to stage II pancreatic cancer, he does receive medications and feedings through this tube. The notes that the patient has had a mild cough, but she states that he also has COPD. At time of triage, the patient is tachycardic at 121 bpm, mildly febrile at 99.3 F, has low blood pressure at 95/80 as well. does not note that the patient has been sick at home. - Related Data Allergies Allergy/AdvReac Type Severity Reaction Status Date / Time vitamin E (d-alpha Allergy Rash Verified 03/26/19 20:50 tocopherol) [vitamin E] Home Meds: Home Meds Albuterol [Proventil HFA] 2 puff INH Q6H PRN 06/22/15 [History] atorvaSTATin Calcium [Atorvastatin Calcium] 20 mg PO BEDTIME 06/22/15 [History] Formoterol Fumarate [Perforomist] 2 ml NEB BID PRN 06/28/18 [History] Insulin Glarg,Human.Rec.Analog [Lantus Solostar] 10 unit SQ DAILY 11/28/18 [ History] Sennosides [Senokot] 2 tab PO BID 11/28/18 [History] Atropine/Diphenoxylate [Diphenoxylate-Atropine] 5 mg PO QID 03/26/19 [History] Gabapentin [Neurontin] 300 mg PO BID 03/26/19 [History] Lansoprazole 15 mg PO BID 03/26/19 [History] Ondansetron [Zofran] 8 mg PO Q8H PRN 03/26/19 [History] Azithromycin 250 mg PO DAILY #4 tablet 04/14/19 [Rx] Past Medical History HEENT History: Reports: Hard of Hearing Other HEENT History: BILATERAL SENSORNEURAL HEARING LOSS, DENTURES - PT STATES HE DOESN'T WEAR THEM Cardiovascular History: Reports: High Cholesterol, Hypertension Other Cardiovascular History: HX OF VARICOSE VEINS Respiratory History: Reports: COPD, Sleep Apnea Other Respiratory History: wears Bi-PAP at noct, wears O2. Gastrointestinal History: Reports: Other (See Below) Other Gastrointestinal History: pancreatic cancer Genitourinary History: Reports: Urinary Incontinence Musculoskeletal History: Reports: Gout Other Musculoskeletal History: RIGHT SHOULDER PAIN, DECREASED ROM, ROTATOR CUFF TEAR Neurological History: Reports: CVA Endocrine/Metabolic History: Reports: Diabetes, Type II Hematologic History: Reports: Blood Transfusion(s) Immunologic History: Reports: Immunosuppression Oncologic (Cancer) History: Reports: Pancreatic (stage 2) Dermatologic History: Reports: Eczema Other Dermatologic History: SEBORRHEIC KERATOSIS, ECZEMA - Past Surgical History HEENT Surgical History: Reports: Cataract Surgery Cardiovascular Surgical History: Reports: Carotid Endarterectomy, Other (See Below) GI Surgical History: Reports: Cholecystectomy, ERCP Musculoskeletal Surgical History: Reports: Shoulder Surgery Social & Family History - Family History Family Medical History: Noncontributory HEENT: Reports: Cataract, Glaucoma Cardiac: Reports: Heart Failure, High Cholesterol, Hypertension, [place] OBGYN: Reports: Musculoskeletal: Reports: Arthritis Neurological: Reports: CVA, TIA Endocrine/Metabolic: Reports: Diabetes, Type I Hematologic: Reports: Anemia - Tobacco Use Smoking Status *Q: Former Smoker Used Tobacco, but Quit: Yes Month/Year Tobacco Last Used: 2004 - Caffeine Use Caffeine Use: Reports: None - Living Situation & Occupation Living situation: Reports: , with Spouse Occupation: Retired ED ROS GENERAL - Review of Systems Review Of Systems: See Below Constitutional: Reports: Fever (in ED triage). Denies: Chills, Malaise, Weakness, Diaphoresis, Decreased Appetite Respiratory: Reports: Cough (pt has coarse sounding junky cough). Denies: Shortness of Breath Cardiovascular: Denies: Chest Pain GI/Abdominal: Reports: Abdominal Pain (mild tenderness around site of J-tube, there is associated redness). Denies: Diarrhea, Nausea, Vomiting : Denies: Dysuria, Frequency, Urgency Skin: Reports: Erythema (around site of J tube) Neurological: Denies: Confusion ED EXAM, GENERAL - Physical Exam Exam: See Below Exam Limited By: No Limitations General Appearance: Alert, WD/WN, No Apparent Distress Eye Exam: Bilateral Eye: EOMI, Normal Inspection, PERRL Ears: Normal External Exam Nose: Normal Inspection Throat/Mouth: Normal Inspection, Normal Lips, Normal Teeth, Normal Gums, Normal Oropharynx, Normal Voice, No Airway Compromise Head: Atraumatic, Normocephalic Neck: Normal Inspection Respiratory/Chest: No Respiratory Distress, Lungs Clear, Normal Breath Sounds, No Accessory Muscle Use, Chest Non-Tender Cardiovascular: Normal Peripheral Pulses, Regular Rate, Rhythm, No Edema, No Murmur Peripheral Pulses: 3+: Radial (L), Radial (R) GI/Abdominal: Normal Bowel Sounds, Soft, No Distention, No Mass, Tender (around J-tube site mainly) Extremities: Normal Inspection, Normal Capillary Refill Neurological: Alert, Oriented, Normal Cognition, No Motor/Sensory Deficits Psychiatric: Normal Affect, Normal Mood Skin Exam: Warm (pt is warm to the touch), Dry, Intact, Normal Color, No Rash Course - Vital Signs Last Recorded V/S: Last Vital Signs Temp 98.4 F 04/14/19 21:34 Pulse 121 H 04/14/19 18:35 Resp 22 H 04/14/19 21:34 BP 81/63 L 04/14/19 21:34 Pulse Ox 94 L 04/14/19 21:34 - Orders/Labs/Meds Orders: Active Orders 24 hr Category Date Time Status Peripheral IV Care [RC] . DIRECTED Care 04/14/19 18:50 Active Urinary Catheter Assessment [RC] ASDIRECTED Care 04/14/19 20:51 Active Urinary Catheter Insertion [Insert Urinary Catheter] [ Care 04/14/19 20:30 Ordered OM.PC] Q24H CULTURE BLOOD [BC] Stat Lab 04/14/19 18:51 Ordered CULTURE BLOOD [BC] Stat Lab 04/14/19 18:51 Ordered UA W/ERIN RFLX IF INDICATED [URIN] Stat Lab 04/14/19 18:50 Received Blood Culture x2 Reflex Set [OM.PC] Stat Oth 04/14/19 18:50 Ordered Peripheral IV Insertion Adult [OM.PC] Stat Oth 04/14/19 18:50 Ordered Saline Lock Insert [OM.PC] Stat Oth 04/14/19 18:50 Ordered Labs: Laboratory Tests 04/14/19 04/14/19 04/14/19 Range/Units 18:50 19:01 19:01 WBC 6.29 (4.23-9.07) K/mm3 RBC 4.96 (4.63-6.08) M/mm3 Hgb 13.2 L (13.7-17.5) gm/dl Hct 40.8 (40.1-51.0) % MCV 82.3 D (79.0-92.2) fl MCH 26.6 (25.7-32.2) pg MCHC 32.4 (32.2-35.5) g/dl RDW Std Deviation 60.8 H (35.1-43.9) fL Plt Count 163 (163-337) K/mm3 MPV 9.6 (9.4-12.3) fl Neutrophils % (Manual) 86 H (40-60) % Band Neutrophils % 6 (0-10) % Lymphocytes % (Manual) 7 L (20-40) % Atypical Lymphs % 0 % Monocytes % (Manual) 1 L (2-10) % Eosinophils % (Manual) 0 L (0.8-7.0) % Basophils % (Manual) 0 L (0.2-1.2) Platelet Estimate Adequate Polychromasia Few Anisocytosis 1+ slight Ovalocytes 1+ slight RBC Morph Comment Not Reportable PT 15.2 H D (9.7-12.0) SECONDS INR 1.42 Sodium (136-145) mEq/L Potassium (3.5-5.1) mEq/L Chloride (98-107) mEq/L Carbon Dioxide (21-32) mEq/L Anion Gap (5-15) BUN (7-18) mg/dL Creatinine (0.7-1.3) mg/dL Est Cr Clr Drug Dosing mL/min Estimated GFR (MDRD) (>60) mL/min BUN/Creatinine Ratio (14-18) Glucose (83-115) mg/dL Lactic Acid (0.4-2.0) mmol/L Calcium (8.5-10.1) mg/dL Total Bilirubin (0.2-1.0) mg/dL AST (15-37) U/L ALT (16-63) U/L Alkaline Phosphatase (46-116) U/L C-Reactive Protein (<1.0) mg/dL Total Protein (6.4-8.2) g/dl Albumin (3.4-5.0) g/dl Globulin gm/dL Albumin/Globulin Ratio (1-2) Urine Color Juliette H (Yellow) Urine Appearance Clear (Clear) Urine pH 6.0 (5.0-8.0) Ur Specific [place] 1.025 (1.005-1.030) Urine Protein 1+ H (Negative) Urine Glucose (UA) 2+ H (Negative) Urine Ketones Trace H (Negative) Urine Occult Blood Negative (Negative) Urine Nitrite Negative (Negative) Urine Bilirubin 1+ H (Negative) Urine Urobilinogen 1.0 (0.2-1.0) Ur Leukocyte Esterase Negative (Negative) 04/14/19 04/14/19 Range/Units 19:01 19:01 WBC (4.23-9.07) K/mm3 RBC (4.63-6.08) M/mm3 Hgb (13.7-17.5) gm/dl Hct (40.1-51.0) % MCV (79.0-92.2) fl MCH (25.7-32.2) pg MCHC (32.2-35.5) g/dl RDW Std Deviation (35.1-43.9) fL Plt Count (163-337) K/mm3 MPV (9.4-12.3) fl Neutrophils % (Manual) (40-60) % Band Neutrophils % (0-10) % Lymphocytes % (Manual) (20-40) % Atypical Lymphs % % Monocytes % (Manual) (2-10) % Eosinophils % (Manual) (0.8-7.0) % Basophils % (Manual) (0.2-1.2) Platelet Estimate Polychromasia Anisocytosis Ovalocytes RBC Morph Comment PT (9.7-12.0) SECONDS INR Sodium 136 (136-145) mEq/L Potassium 4.0 (3.5-5.1) mEq/L Chloride 102 (98-107) mEq/L Carbon Dioxide 30 (21-32) mEq/L Anion Gap 8.0 (5-15) BUN 16 (7-18) mg/dL Creatinine 0.6 L (0.7-1.3) mg/dL Est Cr Clr Drug Dosing 98.23 mL/min Estimated GFR (MDRD) > 60 (>60) mL/min BUN/Creatinine Ratio 26.7 H (14-18) Glucose 146 H (83-115) mg/dL Lactic Acid 1.3 (0.4-2.0) mmol/L Calcium 7.6 L (8.5-10.1) mg/dL Total Bilirubin 0.9 (0.2-1.0) mg/dL AST 20 (15-37) U/L ALT 18 (16-63) U/L Alkaline Phosphatase 140 H (46-116) U/L C-Reactive Protein 9.2 H* (<1.0) mg/dL Total Protein 5.2 L (6.4-8.2) g/dl Albumin 1.5 L (3.4-5.0) g/dl Globulin 3.7 gm/dL Albumin/Globulin Ratio 0.4 L (1-2) Urine Color (Yellow) Urine Appearance (Clear) Urine pH (5.0-8.0) Ur Specific [place] (1.005-1.030) Urine Protein (Negative) Urine Glucose (UA) (Negative) Urine Ketones (Negative) Urine Occult Blood (Negative) Urine Nitrite (Negative) Urine Bilirubin (Negative) Urine Urobilinogen (0.2-1.0) Ur Leukocyte Esterase (Negative) Meds: Medications Discontinued Medications Generic Name Dose Route Start Last Admin Trade Name Freq PRN Reason Stop Dose Admin Azithromycin 500 mg 04/14/19 21:24 04/14/19 21:32 Zithromax PO 04/14/19 21:25 500 mg ONETIME ONE Administration Heparin Sodium (Porcine) 500 units 04/14/19 21:38 04/14/19 21:42 Heparin Lock Flush 100 Units/Ml FLUSH 04/14/19 21:39 500 units ONETIME ONE Administration Sodium Chloride 1,000 mls @ 999 mls/hr 04/14/19 18:50 04/14/19 19:00 Normal Saline IV 04/14/19 19:50 999 mls/hr BOLUS ONE Administration Sodium Chloride 10 ml 04/14/19 18:50 04/14/19 19:00 Saline Flush FLUSH 10 ml ASDIRECTED PRN Administration Keep Vein Open - Re-Assessments/Exams Free Text/Narrative Re-Assessment/Exam: 04/14/19 19:05 Patient presents to the ED for evaluation of possible J-tube dislodgment. Due to the patient's presentation, fever tachycardia and mild hypotension I do believe a further work-up is warranted at this time. Have ordered labs to include CBC, CMP, lactate with reflex, urinalysis, blood cultures x2, influenza swab, CRP, and coagulation studies, chest x-ray, abdominal x-ray with a little bit of contrast to evaluate for tube placement, some IV fluids. 04/14/19 20:24 Patient's labs are started result, white blood cell count is within normal limits, metabolic panel is essentially within normal limits, no acute abnormalities that are worrisome. CRP is mildly elevated at 9.2, and lactic acid is within normal limits. Chest x-ray was done, and demonstrates an increased density within the right lung base. Differential includes change from aspiration, atelectasis as well as pneumonia. Due to the patient's low- grade fever and cough, I would clinically correlate this to be a pneumonia of sorts. Patient will likely be started on azithromycin for community-acquired pneumonia. Patient's abdomen x-ray shows a GJ tube that appears to be within good placement, there was contrast noted within the stomach and as well as the jejunum in the small bowel. 04/14/19 21:18 At this time urine looks okay, no obvious infection noted. Departure - Departure Time of Disposition: 21:26 Disposition: Home, Self-Care 01 Condition: Fair Clinical Impression: Pneumonia Qualifiers: Pneumonia type: due to unspecified organism Laterality: right Lung location: lower lobe of lung Qualified Code(s): J18.9 - Pneumonia, unspecified organism - Discharge Information *PRESCRIPTION DRUG MONITORING PROGRAM REVIEWED*: No *COPY OF PRESCRIPTION DRUG MONITORING REPORT IN PATIENT [place]: No Prescriptions: Azithromycin 250 mg PO DAILY #4 tablet Instructions: Community-Acquired Pneumonia, Adult, [id number] Referrals: Christiana Sierra MD [Primary Care Provider] - Forms: ED Department Discharge Additional Instructions: Deric was evaluated in the ER today regarding his possible dislodgment of his feeding tube. Abdomen x-rays were obtained, and demonstrates that the tube was within good placement in his stomach and small intestine. He had a further work-up, as he had a mild fever at today's visit, his chest x- ray is suggestive of a pneumonia, he was given a dose of a azithromycin in the ER, he will be given 4 tablets for continuation of this, please give 1 tab daily until gone. This was electronically scribed to the [facility] pharmacy located in the [place]. Recommend that you have close follow-up with his doctor, you noted that your next appointment is this coming Thursday. This will be fine for reevaluation. If his symptoms should change or worsen however please do not hesitate to return him to the ER at this time. Sepsis Event Note - Evaluation Sepsis Screening Result: No Definite Risk - Focused Exam Vital Signs: Vital Signs Temp Pulse Resp BP Pulse Ox 04/14/19 21:34 98.4 F 22 H 81/63 L 94 L 04/14/19 18:35 99.3 F 121 H 20 95/80 91 L Date Exam was Performed: 04/14/19 Time Exam was Performed: 22:38 - My Orders Last 24 Hours: My Active Orders 04/14/19 18:50 Peripheral IV Care [RC] . DIRECTED UA W/ERIN RFLX IF INDICATED [URIN] Stat Blood Culture x2 Reflex Set [OM.PC] Stat Peripheral IV Insertion Adult [OM.PC] Stat Saline Lock Insert [OM.PC] Stat 04/14/19 18:51 CULTURE BLOOD [BC] Stat CULTURE BLOOD [BC] Stat 04/14/19 20:30 Urinary Catheter Insertion [Insert Urinary Catheter] [OM.PC] Q24H 04/14/19 20:51 Urinary Catheter Assessment [RC] ASDIRECTED - Assessment/Plan Last 24 Hours: My Active Orders 04/14/19 18:50 Peripheral IV Care [RC] . DIRECTED UA W/ERIN RFLX IF INDICATED [URIN] Stat Blood Culture x2 Reflex Set [OM.PC] Stat Peripheral IV Insertion Adult [OM.PC] Stat Saline Lock Insert [OM.PC] Stat 04/14/19 18:51 CULTURE BLOOD [BC] Stat CULTURE BLOOD [BC] Stat 04/14/19 20:30 Urinary Catheter Insertion [Insert Urinary Catheter] [OM.PC] Q24H 04/14/19 20:51 Urinary Catheter Assessment [RC] ASDIRECTED
--- NOTE | 2019-04-14 20:15 | CR ---
Chest: Portable view of the chest was obtained. Comparison: Prior chest x-ray of 11/28/18. Right-sided infusion port is seen. Increased density within the right lung base is seen. Lungs otherwise are clear. Heart size and mediastinum are normal. Bony structures are grossly intact. Impression: 1. Increased density within the right lung base. Differential includes change from aspiration, atelectasis as well as pneumonia. 2. Nothing acute is otherwise seen. Diagnostic code #3 This report was dictated in [place] Standard Time
--- NOTE | 2019-04-14 20:20 | CR ---
Abdomen: Supine view of the abdomen was obtained. Comparison: Prior abdominal x-ray of 06/30/18. Jejunostomy tube is seen. Contrast appears to be within small bowel that was injected through the gastrostomy tube. Slightly prominent small bowel gas is seen which remains nondilated and is nonspecific. Small amount of colonic gas is seen also is nonspecific. Vascular calcification is noted. Biliary stent is noted. Impression: 1. Jejunostomy tube. Contrast injected which shows a jejunostomy tube due to be within small bowel. 2. Other findings believed to be incidental at this time. Diagnostic code #2 This report was dictated in [place] Standard Time
[2019-04-14] MEDS ORDERED: Azithromycin 250 MG Tab PO ONE (21:24)
[2019-04-14 21:35] VITALS: BP 81/63
== END 2019-04-14 21:54 | disposition home or self-care (01) ==
LOC: JD.ED 18:07
DX: J44.0 Chronic obstructive pulmonary disease with (acute) lower respiratory infection (principal); J18.9 Pneumonia, unspecified organism; E78.00 Pure hypercholesterolemia, unspecified; I10 Essential (primary) hypertension; E11.9 Type 2 diabetes mellitus without complications; H90.3 Sensorineural hearing loss, bilateral; G47.30 Sleep apnea, unspecified; Z88.8 Allergy status to other drugs, medicaments and biological substances; Z79.899 Other long term (current) drug therapy; Z86.73 Personal history of transient ischemic attack (TIA), and cerebral infarction without residual deficits; Z87.891 Personal history of nicotine dependence; Z79.4 Long term (current) use of insulin
CPT/HCPCS: 36415; 71045; 74018; 80053; 81003; 83605; 85007; 85027; 85610; 86140; 87040; 87804; 96360; 99283; A9270; J1642; J7030

== ENCOUNTER 2019-04-29 11:54 | Emergency (ER) | payer MEDICARE, OTHER ==
[2019-04-29 12:30] VITALS: BP 92/74; PULSE 116
[2019-04-29] MEDS ORDERED: Albuterol 0.083% 2.5 MG/3 ML Neb Soln NEB ONE (12:32)
[2019-04-29] MEDS ORDERED: Lidocaine 4% Crm 5 Gm with Transparent Dressing Kit TOP ONE (12:53)
[2019-04-29] MEDS ORDERED: HYDROmorphone 0.5 MG/0.5 ML Syringe ONE (14:50)
[2019-04-29] MEDS ORDERED: HYDROmorphone 0.5 MG/0.5 ML Syringe IVPUSH ONE (15:19)
--- NOTE | 2019-04-29 16:07 | EDM.PDOC ---
ED HPI GENERAL MEDICAL PROBLEM - General Chief Complaint: Gastrointestinal Problem Stated Complaint: MULTIPLE ISSUES TO SEE DR ALVARADO Time Seen by Provider: 04/29/19 13:00 Source of Information: Reports: Patient - History of Present Illness INITIAL COMMENTS - FREE TEXT/NARRATIVE: Patient with history of pancreatic cancer, referred by PCP for new onset ascites with shortness of breath. Referred for paracentesis - Related Data Allergies Allergy/AdvReac Type Severity Reaction Status Date / Time vitamin E (d-alpha Allergy Rash Verified 04/29/19 12:31 tocopherol) [vitamin E] Home Meds: Home Meds Albuterol [Proventil HFA] 2 puff INH Q6H PRN 06/22/15 [History] atorvaSTATin Calcium [Atorvastatin Calcium] 20 mg PO BEDTIME 06/22/15 [History] Insulin Glarg,Human.Rec.Analog [Lantus Solostar] 10 unit SQ DAILY 11/28/18 [ History] Atropine/Diphenoxylate [Diphenoxylate-Atropine] 5 mg PO QID 03/26/19 [History] Gabapentin [Neurontin] 300 mg PO BID PRN 03/26/19 [History] Lansoprazole 15 mg PO BID 03/26/19 [History] Ondansetron [Zofran] 8 mg PO Q8H PRN 03/26/19 [History] Furosemide [Lasix] 20 mg PO DAILY 04/29/19 [History] Potassium Chloride [Klor-Con M20] 20 meq PO DAILY 04/29/19 [History] Past Medical History HEENT History: Reports: Hard of Hearing Other HEENT History: BILATERAL SENSORNEURAL HEARING LOSS, DENTURES - PT STATES HE DOESN'T WEAR THEM Cardiovascular History: Reports: High Cholesterol, Hypertension Other Cardiovascular History: HX OF VARICOSE VEINS Respiratory History: Reports: COPD, Sleep Apnea Other Respiratory History: wears Bi-PAP at noct, wears O2. Gastrointestinal History: Reports: Other (See Below) Other Gastrointestinal History: pancreatic cancer Genitourinary History: Reports: Urinary Incontinence Musculoskeletal History: Reports: Gout Other Musculoskeletal History: RIGHT SHOULDER PAIN, DECREASED ROM, ROTATOR CUFF TEAR Neurological History: Reports: CVA Endocrine/Metabolic History: Reports: Diabetes, Type II Hematologic History: Reports: Blood Transfusion(s) Immunologic History: Reports: Immunosuppression Oncologic (Cancer) History: Reports: Pancreatic Dermatologic History: Reports: Eczema Other Dermatologic History: SEBORRHEIC KERATOSIS, ECZEMA - Past Surgical History HEENT Surgical History: Reports: Cataract Surgery Cardiovascular Surgical History: Reports: Carotid Endarterectomy, Other (See Below) GI Surgical History: Reports: Cholecystectomy, ERCP Musculoskeletal Surgical History: Reports: Shoulder Surgery Social & Family History - Family History Family Medical History: Noncontributory HEENT: Reports: Cataract, Glaucoma Cardiac: Reports: Heart Failure, High Cholesterol, Hypertension, [place] OBGYN: Reports: Musculoskeletal: Reports: Arthritis Neurological: Reports: CVA, TIA Endocrine/Metabolic: Reports: Diabetes, Type I Hematologic: Reports: Anemia - Caffeine Use Caffeine Use: Reports: None - Recreational Drug Use Recreational Drug Use: No - Living Situation & Occupation Living situation: Reports: , with Spouse Occupation: Retired ED ROS GENERAL - Review of Systems Review Of Systems: See Below Constitutional: Reports: Malaise, Weakness, Fatigue, Decreased Appetite, Weight Loss. Denies: Fever, Chills, Diaphoresis Respiratory: Reports: Shortness of Breath. Denies: Wheezing GI/Abdominal: Reports: Abdominal Pain, Anorexia, Decreased Appetite ED EXAM, GENERAL - Physical Exam Exam: See Below General Appearance: Alert, Mild Distress Head: Atraumatic, Other (bitermporal wasting) Neck: Normal Inspection, Supple, Non-Tender Respiratory/Chest: No Respiratory Distress Cardiovascular: Normal Peripheral Pulses GI/Abdominal: Distended, Other (+ fluid wave and shifting dullness, pain on palpation ) Neurological: Alert Course - Vital Signs Last Recorded V/S: Last Vital Signs Temp 97.8 F 04/29/19 12:21 Pulse 116 H 04/29/19 12:21 Resp 23 H 04/29/19 12:21 BP 92/74 04/29/19 12:21 Pulse Ox 91 L 04/29/19 12:39 - Orders/Labs/Meds Orders: Active Orders 24 hr Category Date Time Status Implanted Port Access [RC] STAT Care 04/29/19 13:30 Active RT Aerosol Therapy [RC] ASDIRECTED Care 04/29/19 12:32 Active Labs: Laboratory Tests 04/29/19 04/29/19 Range/Units 13:30 13:30 WBC 6.11 (4.23-9.07) K/mm3 RBC 4.72 (4.63-6.08) M/mm3 Hgb 13.1 L (13.7-17.5) gm/dl Hct 40.6 (40.1-51.0) % MCV 86.0 (79.0-92.2) fl MCH 27.8 (25.7-32.2) pg MCHC 32.3 (32.2-35.5) g/dl RDW Std Deviation 68.2 H (35.1-43.9) fL Plt Count 180 (163-337) K/mm3 MPV 9.8 (9.4-12.3) fl Neut % (Auto) 66.9 (34.0-67.9) % Lymph % (Auto) 18.7 L (21.8-53.1) % [place] % (Auto) 12.1 (5.3-12.2) % Eos % (Auto) 1.1 (0.8-7.0) Baso % (Auto) 0.2 (0.1-1.2) % Neut # (Auto) 4.09 (1.78-5.38) K/mm3 Lymph # (Auto) 1.14 L (1.32-3.57) K/mm3 [place] # (Auto) 0.74 (0.30-0.82) K/mm3 Eos # (Auto) 0.07 (0.04-0.54) K/mm3 Baso # (Auto) 0.01 (0.01-0.08) K/mm3 PT 15.4 H (9.7-12.0) SECONDS INR 1.44 APTT 34 H (22-31) SECONDS Meds: Medications Discontinued Medications Generic Name Dose Route Start Last Admin Trade Name Juve PRN Reason Stop Dose Admin Albuterol 2.5 mg 04/29/19 12:32 04/29/19 12:39 Proventil Neb Soln NEB 04/29/19 12:33 2.5 mg ONETIME ONE Administration Hydromorphone HCl Confirm 04/29/19 14:50 04/29/19 15:19 Dilaudid Administered 04/29/19 14:51 Not Given Dose 0.5 mg .ROUTE .STK-MED ONE Hydromorphone HCl 0.5 mg 04/29/19 15:19 04/29/19 14:48 Dilaudid IVPUSH 04/29/19 15:20 0.5 mg ONETIME ONE Administration Lidocaine HCl 1 each 04/29/19 12:53 04/29/19 12:57 Lmx 4 Cream With Tegaderm TOP 04/29/19 12:54 1 dose ASDIRECTED ONE Administration Departure - Departure Time of Disposition: 16:03 Disposition: Home, Self-Care 01 Clinical Impression: Primary pancreatic cancer Pancreatic cancer Qualifiers: Pancreatic malignancy location: unspecified Qualified Code(s): C25.9 - Malignant neoplasm of pancreas, unspecified Ascites Qualifiers: Ascites type: other type Qualified Code(s): R18.8 - Other ascites - Discharge Information *PRESCRIPTION DRUG MONITORING PROGRAM REVIEWED*: Not Applicable *COPY OF PRESCRIPTION DRUG MONITORING REPORT IN PATIENT L[place]EN: Not Applicable Referrals: Christiana Sierra MD [Primary Care Provider] - Additional Instructions: 1. Please leave band-aid on today and remove tomorrow prior to taking a shower, the wound does not need to be covered after that 2. Please come back to the emergency department for severe acute abdominal pain , fever, chills, uncontrollable bleeding Sepsis Event Note - Evaluation Sepsis Screening Result: No Definite Risk - Focused Exam Vital Signs: Vital Signs Temp Pulse Resp BP Pulse Ox Pulse Ox 04/29/19 12:39 91 L 04/29/19 12:21 97.8 F 116 H 23 H 92/74 89 L Date Exam was Performed: 04/29/19 Time Exam was Performed: 16:01 - My Orders Last 24 Hours: My Active Orders 04/29/19 12:32 RT Aerosol Therapy [RC] ASDIRECTED 04/29/19 13:30 Implanted Port Access [RC] STAT - Assessment/Plan Last 24 Hours: My Active Orders 04/29/19 12:32 RT Aerosol Therapy [RC] ASDIRECTED 04/29/19 13:30 Implanted Port Access [RC] STAT Paracentesis - Paracentesis Paracentesis Indication: ascites Location: RLQ Skin prep: CDC/MBT Guidelines Ultrasound guided: Yes Local anesthesia: lidocaine 1 % Local anesthesia volume: 10cc Number of Attempts: 1 Device Used: 8 Fr kit device Fluid: yellow Fluids sent: cell count, cytology Complications: No Dressing: adhesive dressing
== END 2019-04-29 20:05 | disposition home or self-care (01) ==
LOC: JD.ED 11:54
DX: C25.9 Malignant neoplasm of pancreas, unspecified (principal); R18.8 Other ascites; J44.9 Chronic obstructive pulmonary disease, unspecified; H90.3 Sensorineural hearing loss, bilateral; E78.00 Pure hypercholesterolemia, unspecified; I10 Essential (primary) hypertension; G47.30 Sleep apnea, unspecified; E11.9 Type 2 diabetes mellitus without complications; Z88.8 Allergy status to other drugs, medicaments and biological substances; Z79.899 Other long term (current) drug therapy; Z79.4 Long term (current) use of insulin; Z86.73 Personal history of transient ischemic attack (TIA), and cerebral infarction without residual deficits
CPT/HCPCS: 36415; 36600; 49082; 82803; 85025; 85610; 85730; 89050; 94640; 96374; 99284; C1729; J1170; J1642

== ENCOUNTER 2019-05-12 13:22 | Emergency (ER) | payer MEDICARE, OTHER ==
[2019-05-12 14:12] VITALS: BP 88/73; PULSE 95
--- NOTE | 2019-05-12 16:36 | EDM.PDOC ---
ED HPI GENERAL MEDICAL PROBLEM - General Chief Complaint: Gastrointestinal Problem Stated Complaint: FEEDING TUBE ISSUES,LEAKAGE Time Seen by Provider: 05/12/19 15:24 Source of Information: Reports: Patient, Family, RN Notes Reviewed - History of Present Illness INITIAL COMMENTS - FREE TEXT/NARRATIVE: 74-year-old male is brought by family primarily feeding tube issues. He does have a J type tube according to family that was placed back in December at [facility] about 4 to5 months ago. Family states the tube has been leaking fluid when they do feedings and also leaking "when he drinks". This has been going on for about a month but worse this past week and especially the past few days. He does have hx of pancreatic cancer. He had a clinic appointment in [place] 2 days ago. Family states that they did draw some labs and than "they were told that he only had days to live and they could go home with all future appointments canceled. [place] them that kind of decision could not be made without abd CT. Pt did have abd CT here at this hospital a couple of hrs ago and now family brings him here with those concerns and concerns about the feeding tube leakage. - Related Data Allergies Allergy/AdvReac Type Severity Reaction Status Date / Time vitamin E (d-alpha Allergy Rash Verified 05/12/19 21:33 tocopherol) [vitamin E] Home Meds: Home Meds Albuterol [Proventil HFA] 2 puff INH Q6H PRN 06/22/15 [History] Insulin Glarg,Human.Rec.Analog [Lantus Solostar] 10 unit SQ DAILY 11/28/18 [ History] Past Medical History HEENT History: Reports: Hard of Hearing Other HEENT History: BILATERAL SENSORNEURAL HEARING LOSS, DENTURES - PT STATES HE DOESN'T WEAR THEM Cardiovascular History: Reports: High Cholesterol, Hypertension Other Cardiovascular History: HX OF VARICOSE VEINS Respiratory History: Reports: COPD, Sleep Apnea Other Respiratory History: wears Bi-PAP at noct, wears O2. Gastrointestinal History: Reports: Other (See Below) Other Gastrointestinal History: pancreatic cancer Genitourinary History: Reports: Urinary Incontinence Musculoskeletal History: Reports: Gout Other Musculoskeletal History: RIGHT SHOULDER PAIN, DECREASED ROM, ROTATOR CUFF TEAR Neurological History: Reports: CVA Endocrine/Metabolic History: Reports: Diabetes, Type II Hematologic History: Reports: Blood Transfusion(s) Immunologic History: Reports: Immunosuppression Oncologic (Cancer) History: Reports: Pancreatic Dermatologic History: Reports: Eczema Other Dermatologic History: SEBORRHEIC KERATOSIS, ECZEMA - Past Surgical History HEENT Surgical History: Reports: Cataract Surgery Cardiovascular Surgical History: Reports: Carotid Endarterectomy, Other (See Below) GI Surgical History: Reports: Cholecystectomy, ERCP Musculoskeletal Surgical History: Reports: Shoulder Surgery Social & Family History - Family History Family Medical History: Noncontributory HEENT: Reports: Cataract, Glaucoma Cardiac: Reports: Heart Failure, High Cholesterol, Hypertension, [place] OBGYN: Reports: Musculoskeletal: Reports: Arthritis Neurological: Reports: CVA, TIA Endocrine/Metabolic: Reports: Diabetes, Type I Hematologic: Reports: Anemia - Tobacco Use Smoking Status *Q: Former Smoker Used Tobacco, but Quit: Yes Month/Year Tobacco Last Used: 2004 - Caffeine Use Caffeine Use: Reports: None - Recreational Drug Use Recreational Drug Use: No - Living Situation & Occupation Living situation: Reports: , with Spouse Occupation: Retired ED ROS GENERAL - Review of Systems Review Of Systems: See Below HEENT: Reports: No Symptoms Respiratory: Denies: Shortness of Breath Cardiovascular: Denies: Chest Pain GI/Abdominal: Reports: Abdominal Pain (Mild generalized discomfort), Decreased Appetite. Denies: Hematochezia, Melena Musculoskeletal: Reports: No Symptoms Skin: Denies: Rash Neurological: Reports: Weakness. Denies: Trouble Speaking (Generalized) ED EXAM, NEURO - Physical Exam Exam: See Below General Appearance: Other (Mildly drowsy but does make good eye contact when spoken to, answering questions appropriately) Eye Exam: Bilateral Eye: PERRL Throat/Mouth: Normal Inspection (Oral mucosa mildly dry), Normal Voice Head Exam: Atraumatic Neck: Supple, Other Respiratory/Chest: No Respiratory Distress (No JVD), Lungs Clear, Normal Breath Sounds Cardiovascular: Regular Rate, Rhythm GI/Abdominal: Soft, Distended (Mild), Tender (Mild midepigastric, mid upper tenderness, lower abdomen nontender. Gastric feeding tube present, no leakage around tube at this time) Neurological: Alert, No Motor/Sensory Deficits Skin Exam: Warm, Dry, Pallor Course - Vital Signs Last Recorded V/S: Last Vital Signs Temp 97.3 F 05/12/19 14:04 Pulse 95 05/12/19 14:04 Resp 16 05/12/19 14:04 BP 88/73 L 05/12/19 14:04 Pulse Ox 95 05/12/19 14:04 - Orders/Labs/Meds Labs: Laboratory Tests 05/12/19 05/12/19 05/12/19 Range/Units 16:54 16:54 16:54 WBC 4.84 (4.23-9.07) K/mm3 RBC 4.40 L (4.63-6.08) M/mm3 Hgb 12.6 L (13.7-17.5) gm/dl Hct 40.1 (40.1-51.0) % MCV 91.1 D (79.0-92.2) fl MCH 28.6 (25.7-32.2) pg MCHC 31.4 L (32.2-35.5) g/dl RDW Std Deviation 69.9 H (35.1-43.9) fL Plt Count 124 L (163-337) K/mm3 MPV 10.0 (9.4-12.3) fl Neut % (Auto) 80.2 H (34.0-67.9) % Lymph % (Auto) 11.0 L (21.8-53.1) % [place] % (Auto) 7.6 (5.3-12.2) % Eos % (Auto) 0 L (0.8-7.0) Baso % (Auto) 0.2 (0.1-1.2) % Neut # (Auto) 3.88 (1.78-5.38) K/mm3 Lymph # (Auto) 0.53 L (1.32-3.57) K/mm3 [place] # (Auto) 0.37 (0.30-0.82) K/mm3 Eos # (Auto) 0.00 L (0.04-0.54) K/mm3 Baso # (Auto) 0.01 (0.01-0.08) K/mm3 Sodium 134 L (136-145) mEq/L Potassium 3.0 L (3.5-5.1) mEq/L Chloride 101 (98-107) mEq/L Carbon Dioxide 30 (21-32) mEq/L Anion Gap 6.0 (5-15) BUN 13 (7-18) mg/dL Creatinine 0.7 (0.7-1.3) mg/dL Est Cr Clr Drug Dosing TNP Estimated GFR (MDRD) > 60 (>60) mL/min BUN/Creatinine Ratio 18.6 H (14-18) Glucose 129 H (83-115) mg/dL Lactic Acid 0.9 (0.4-2.0) mmol/L Calcium 7.4 L (8.5-10.1) mg/dL Total Bilirubin 2.6 H (0.2-1.0) mg/dL AST 114 H (15-37) U/L ALT 107 H (16-63) U/L Alkaline Phosphatase 1515 H (46-116) U/L Total Protein 4.7 L (6.4-8.2) g/dl Albumin 1.2 L (3.4-5.0) g/dl Globulin 3.5 gm/dL Albumin/Globulin Ratio 0.3 L (1-2) Lipase 53 L (73-393) U/L Meds: Medications Discontinued Medications Generic Name Dose Route Start Last Admin Trade Name Freq PRN Reason Stop Dose Admin Heparin Sodium (Porcine) 500 units 05/12/19 20:12 05/12/19 20:16 Heparin Lock Flush 100 Units/Ml FLUSH 500 units ASDIRECTED PRN Administration port deaccess Heparin Sodium (Porcine) Confirm 05/12/19 20:12 05/12/19 21:03 Heparin Lock Flush 100 Units/Ml Administered 05/12/19 20:13 Not Given Dose 500 units .ROUTE .STK-MED ONE - Re-Assessments/Exams Free Text/Narrative Re-Assessment/Exam: 05/14/19 10:29 I have reviewed the radiologist report on CT of abdomen pelvis done just a couple of hours ago. There is increasing fullness of the pancreatic head and neck with increasing pancreatic duct dilatation suggestive of increase of patient's pancreatic carcinoma with comparison to CT done at this facility about 10 months ago. There is an area of enhancement right inferior lobe of liver and also area of abnormality in the spleen and small nodule on the left adrenal gland all of which could represent early metastasis. Abnormal labs include potassium of 3.0, AST 114, ALT 107 alkaline phosphatase 1515. Lipase today was 53 and other chemistries all relatively normal. Family states that they were told in [place] that he "only has days to live" and they are very upset with that information. They have called [facility] for 2nd opinion, he is scheduled to go to [place] for follow up first part of this next week. His condition is certainly very serious with the areas of probable metastisis and elevated alk phos also of concern. The CT report and labs have been faxed to the dept. of his [place] Clinician. They will call [place] 2/7 AM for further advise. Discharge instr. as documented. I did ask if they wanted a referral for palliative care eval/assistance. They do not want that at this time, he is already getting some home health services. Departure - Departure Time of Disposition: 19:45 Disposition: Home, Self-Care 01 Condition: Serious Clinical Impression: Gastrostomy tube dysfunction Pancreatic cancer Qualifiers: Pancreatic malignancy location: unspecified Qualified Code(s): C25.9 - Malignant neoplasm of pancreas, unspecified - Discharge Information Instructions: Pancreatic Cancer, Gastrostomy Tube Home Guide, Adult Referrals: Christiana Sierra MD [Primary Care Provider] - Forms: ED Department Discharge Additional Instructions: Continue current medications. Continue to drink plenty of water and other fluids to maintain hydration. Continue tube feedings for now as best you can. Your potassium today was low at 3.0. Bananas are a good source of K+ so try eat one or 2 a day if possible. Your following lab values were elevated, AST 114, ALT 107, Alk phos. 1515. The CT as discussed does show increased tumor size in the pancreas from last June and does show evidence of probable metastasis to the inferior lobe of the liver, L adrenal and possibly to the spleen. Your hydration status today looks good and kidney function also looks good. Try see Dr Finley, General Surgeon for [facility] regarding the G Tube difficulties you are having. Call [phone] for appointment. We will fax the information we have to [facility]. Allow them to give you further guidance after they have had a chance to review the abd and pelvis CT done today as well as other information from today's ED visit. Sepsis Event Note - Evaluation Sepsis Screening Result: No Definite Risk - Focused Exam Date Exam was Performed: 05/14/19 Time Exam was Performed: 10:22
== END 2019-05-12 20:31 | disposition home or self-care (01) ==
LOC: JD.ED 13:22
DX: K94.23 Gastrostomy malfunction (principal); C25.9 Malignant neoplasm of pancreas, unspecified; I10 Essential (primary) hypertension; J44.9 Chronic obstructive pulmonary disease, unspecified; Z79.4 Long term (current) use of insulin; Z87.891 Personal history of nicotine dependence; Z86.73 Personal history of transient ischemic attack (TIA), and cerebral infarction without residual deficits; J90 Pleural effusion, not elsewhere classified; I70.0 Atherosclerosis of aorta; R93.3 Abnormal findings on diagnostic imaging of other parts of digestive tract; M47.819 Spondylosis without myelopathy or radiculopathy, site unspecified; K86.89 Other specified diseases of pancreas; R93.2 Abnormal findings on diagnostic imaging of liver and biliary tract; D73.89 Other diseases of spleen; E27.8 Other specified disorders of adrenal gland; R18.8 Other ascites; Z96.89 Presence of other specified functional implants; Z93.1 Gastrostomy status
CPT/HCPCS: 36415; 71250; 74177; 80053; 83605; 83690; 85025; 99284; J1642; Q9963; Q9967; 99283